=== PATIENT | female | born 1945 | race Caucasian/White ===

== ENCOUNTER 2019-02-25 12:26 | Inpatient (IN) ==
[2019-02-25] MEDS ORDERED: SODIUM CHLORIDE 0.9% 500 ML IV SCH (12:45)
[2019-02-25 12:55] LABS: Basophils # (auto) 0.03 K/uL (0-0.2); Basophils % (auto) 0.5 %; Eosinophils # (auto) 0.12 K/uL (0-0.5); Eosinophils % (auto) 1.8 %; Hematocrit (blood only) 38.8 % (37-47); Hemoglobin 12.9 g/dL (12.0-16.0); Immature Granulocytes # (auto) 0.02 K/uL (0.00-0.02); Immature Granulocytes % (auto) 0.3 %; Lymphocytes # (auto) 1.79 K/uL (1.2-3.4); Lymphocytes % (auto) 27.3 %; Mean Corpuscular Hgb Conc 33.2 g/dL (32-36); Mean Corpuscular Volume 91.1 fL (80-100); Mean Platelet Volume 9.7 fL (7.4-10.4); Monocytes % (auto) 10.7 %; Neutrophils % (auto) 59.4 %; Platelet Count 224 K/uL (130-400); RDW Coefficient of Variation 14.4 % (11.5-14.5); RDW Standard Deviation 48.2 fL (36.4-46.3); Red Blood Count 4.26 M/uL (4.2-5.4); White Blood Count 6.56 K/uL (4.8-10.8)
[2019-02-25 13:03] LABS: Alanine Aminotransferase 17 U/L (12-78); Albumin Level 2.8 gm/dl (3.4-5.0); Aspartate Aminotransferase 16 U/L (15-37); BUN Creatinine Ratio 20.9 (10-20); Blood Urea Nitrogen 18 mg/dl (7-18); Calcium 9.1 mg/dl (8.5-10.1); Carbon Dioxide 29 mmol/L (21-32); Chloride 111 mmol/L (98-107); Est GFR (African American) 74.5; Est GFR (Non-African American) 64.3; Glucose 111 mg/dl (70-99); Magnesium 2.1 mg/dl (1.8-2.4); Potassium 4.3 mmol/L (3.5-5.1); Sodium 144 mmol/L (136-145)
[2019-02-25 13:07] LABS: Partial Thromboplastin Ratio 0.8; Partial Thromboplastin Time 21.1 Seconds (21.0-31.0); Prothrombin Time 10.1 Seconds (9.0-12.0)
[2019-02-25 13:13] LABS: Albumin Globulin Ratio 0.7 (0.9-2); Alkaline Phosphatase 129 U/L (45-117); Bilirubin,Total 0.3 mg/dl (0.2-1); Total Protein 6.8 gm/dl (6.4-8.2); Troponin I < 0.015 ng/ml (0-0.045)
--- NOTE | 2019-02-25 13:26 | XRay Report ---
KUB HISTORY: Ureteral stent evaluation. COMPARISON: None. FINDINGS: The bowel gas pattern is unremarkable. There are no dilated loops of small bowel to suggest an obstruction. A right ureteral stent appears in good position. No definite renal or ureteral calc elias identified. 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 There is also moderate to se andreas osteoarthritis within the right hip. Round calcification within the left deep pelvis favors a ph lebolith. The renal shadows are mostly obscured by overlying bowel gas. No pneumoperitoneum or pneuma tosis. IMPRESSION: The right ureteral stent appears in good position. No definite renal or ureteral calculi identified. Electronically signed by: Lusi Chaney M.D. 02/25/2019 1:25 PM
--- NOTE | 2019-02-25 13:26 | XRay Report ---
XR chest 1V portable CLINICAL HISTORY: weakness dyspnea COMPARISON STUDY: No previous studies for comparison. FINDINGS: Heart is top normal in terms of size. Slight nonspecific interstitial prominence. No focal infiltrate. Diaphragms are smooth. IMPRESSION: Slight nonspecific interstitial prominence. Otherwise negative chest. The above report was generated using voice recognition software. It may contain grammatical, syntax or spelling errors. Electronically signed by: Papito Moses M.D. 02/25/2019 1:25 PM
[2019-02-25 13:38] LABS: Appearance Urine Cloudy (Clear); Bacteria Urine Automated Negative (Negative); Bilirubin Urine Negative (Negative); Color Urine Yellow; Epithelial Cell Urine Auto >30 /lpf (0-5); Glucose Urine UA Negative (Negative); Ketones Urine Negative (Negative); Leukocyte Esterase Urine 3+ (Negative); Nitrite Urine Negative (Negative); Protein Urine Negative (Negative); Specific Gravity Urine 1.017 (1.000-1.030); Urobilinogen Urine Negative (Negative); WBC Urine Automated >30 /hpf (0-5); pH Urine 7.5 (4.5-7.5)
[2019-02-25] MEDS ORDERED: PIPERACILLIN/TAZOBACTAM 4.5 GM/120 ML BAG IV ONE (14:20)
[2019-02-25] MEDS ORDERED: PIPERACILL/TAZOBAC CONSULT ACTIVE PRN (14:20)
--- NOTE | 2019-02-25 14:39 | Emergency Department Note ---
Entered by Trina Boudreaux acting as a scribe for History of Present Illness General Chief complaint: Altered Mental Status Stated complaint: altered mental status Time Seen by Provider: 02/25/19 12:28 Source: family (sister) Mode of arrival: EMS Limitations: no limitations History of Present Illness Provider complaint: AMS Onset (ago): hour(s) (this morning) Location: head Pain Consistency: + other (episode) Quality: + other (AMS) Associated symptoms: + confusion, + fever/chills and + other (lethargic) The patient is a 73 year old female who presents to the Emergency Room via EMS for an evaluation of altered mental status. The patient's sister at bedside reports that the patient was referred to the ER after being evaluated at the sleep clinic. She states that the provider thought the patient seemed confused and lethargic. She agrees with the patient being lethargic but disagrees with the confusion. She explains that she believes that the patient is acting baseline. She also reports that the patient does have a kidney infection and had a ureteral stent placed recently. Per sister, the patient temperature earlier today was 99 F. Home Medications Home Medications Medication Instructions Recorded Confirmed Type acetaminophen 500 mg PO Q6H PRN 02/25/19 02/25/19 History aspirin 81 mg PO DAILY 02/25/19 02/25/19 History atenolol 12.5 mg PO DAILY 02/25/19 02/25/19 History divalproex 250 mg PO TID 02/25/19 02/25/19 History divalproex [Depakote] 125 mg PO DAILY 02/25/19 02/25/19 History donepezil 10 mg PO DAILY 02/25/19 02/25/19 History gabapentin [Neurontin] 100 mg PO TID 02/25/19 02/25/19 History Allergies Allergy/AdvReac Type Severity Reaction Status Date / Time sulfamethoxazole AdvReac Photosensit Unverified 02/25/19 14:09 [From Bactrim] ivity trimethoprim [From Bactrim] AdvReac Photosensit Unverified 02/25/19 14:09 ivity Past Med/Surg History Medical History Kidney infection Surgical History S/P ureteral stent placement Social History Feels Safe at Home: Yes Smoking Status: Never smoker Review of Systems See HPI for pertinent positives & negatives. and A total of 10 systems reviewed and were otherwise negative Physical Exam Vital Signs Vital Signs - 24 hr 02/25/19 12:37 02/25/19 12:42 02/25/19 12:57 Temperature 37.0 C Temperature Source Oral Sepsis Recent Fever Within 48 Hours No Sepsis Action Taken by Nursing No Action Required Pulse Rate 56 L 54 L 56 L Respiratory Rate 20 17 20 Blood Pressure 155/67 H 155/67 H Blood Pressure Mean 96 96 Pulse Oximetry 97 Oxygen Delivery Method Room Air 02/25/19 13:00 02/25/19 13:22 Temperature Temperature Source Sepsis Recent Fever Within 48 Hours Sepsis Action Taken by Nursing Pulse Rate 70 62 Respiratory Rate 25 H Blood Pressure Blood Pressure Mean Pulse Oximetry 98 Oxygen Delivery Method Room Air GENERAL: Patient is awake to verbal commands. She is slow to answer questions but does answer questions appropriately at times. She recognizes her sister. EYES: The conjunctivae are clear. The pupils are round and reactive. EARS, NOSE, MOUTH AND THROAT: The nose is without any evidence of any deformity. Mucous membranes are moist.Tongue is midline NECK: The neck is nontender and supple. RESPIRATORY: Normal respiratory effort is noted. There is no evidence of wheezing rhonchi or rales to auscultation. CARDIOVASCULAR: Regular rate and rhythm noted. There no murmurs rubs or gallops normal S1 normal S2 GASTROINTESTINAL: The abdomen is soft. Bowel sounds are present in all quadrants. Abdomen is nontender. MUSCULOSKELETAL/EXTREMITIES: There is no evidence of gross deformity. Full range of motion is noted in the hips and shoulders. SKIN: There is no obvious evidence of any rash. Pedal edema was noted bilaterally. NEUROLOGIC: Patient is awake to verbal commands. She is moving all extremities well. Strength is symmetric but diminished. There is no facial droop noted. Course 1243: Past medical records reviewed. The patient was evaluated in room B7. A complete history and physical examination was performed. 1444: I reviewed the patient's case with Rhea Joshi PA-C - [facility] Hospitalist. She will evaluate the patient for further management. Administered Medications Discontinued Medications Sodium Chloride (Nss) 500 mls @ 999 mls/hr IV .Q31M RIN Stop: 02/25/19 13:15 Last Infusion: 02/25/19 13:52 Dose: 0 mls/hr Documented by: [id number] Admin: 02/25/19 13:05 Dose: 999 mls/hr Documented by: [id number] Medical Decision Making Differential Diagnosis Differential diagnoses includes but is not limited to toxic, metabolic, infectious, traumatic, cardiac, neurologic, hematologic, psychiatric and inflammatory etiologies. Medical Records Attestation: I reviewed the patient's medical records. Home Medications Current Medication List: was personally reviewed by in Laboratory Data Attestation: I reviewed the patient's lab results. Result diagrams: 02/25/19 12:12 02/25/19 12:12 Lab Results 02/25/19 02/25/19 02/25/19 Range/Units 12:12 12:12 12:12 WBC 6.56 (4.8-10.8) K/uL RBC 4.26 (4.2-5.4) M/uL Hgb 12.9 (12.0-16.0) g/dL Hct 38.8 (37-47) % MCV 91.1 (80-100) fL MCH 30.3 (25-34) pg MCHC 33.2 (32-36) g/dL RDW Std Deviation 48.2 H (36.4-46.3) fL RDW Coeff of Cathie 14.4 (11.5-14.5) % Plt Count 224 (130-400) K/uL MPV 9.7 (7.4-10.4) fL Immature Gran % (Auto) 0.3 % Neut % (Auto) 59.4 % Lymph % (Auto) 27.3 % [place] % (Auto) 10.7 % Eos % (Auto) 1.8 % Baso % (Auto) 0.5 % Immature Gran # (Auto) 0.02 (0.00-0.02) K/uL Neut # (Auto) 3.90 (1.4-6.5) K/uL Lymph # (Auto) 1.79 (1.2-3.4) K/uL [place] # (Auto) 0.70 H (0.11-0.59) K/uL Eos # (Auto) 0.12 (0-0.5) K/uL Baso # (Auto) 0.03 (0-0.2) K/uL PT 10.1 (9.0-12.0) Seconds INR 1.0 (0.9-1.1) APTT 21.1 (21.0-31.0) Seconds PTT Ratio 0.8 Sodium 144 (136-145) mmol/L Potassium 4.3 (3.5-5.1) mmol/L Chloride 111 H (98-107) mmol/L Carbon Dioxide 29 (21-32) mmol/L Anion Gap 4.0 (3-11) BUN 18 (7-18) mg/dl Creatinine 0.88 (0.6-1.2) mg/dl Est Cr Clr Drug Dosing 51.0 ml/min Est GFR ( Amer) 74.5 Est GFR (Non-Af Amer) 64.3 BUN/Creatinine Ratio 20.9 H (10-20) Glucose 111 H (70-99) mg/dl Lactate (0.4-2.0) mmol/L Calcium 9.1 (8.5-10.1) mg/dl Magnesium 2.1 (1.8-2.4) mg/dl Total Bilirubin 0.3 (0.2-1) mg/dl AST 16 (15-37) U/L ALT 17 (12-78) U/L Alkaline Phosphatase 129 H (45-117) U/L Troponin I < 0.015 (0-0.045) ng/ml Total Protein 6.8 (6.4-8.2) gm/dl Albumin 2.8 L (3.4-5.0) gm/dl Globulin 4.0 (2.5-4.0) gm/dl Albumin/Globulin Ratio 0.7 L (0.9-2) TSH 3.370 (0.300-4.500) uIu/ml Urine Color Urine Appearance (Clear) Urine pH (4.5-7.5) Ur Specific [place] (1.000-1.030) Urine Protein (Negative) Urine Glucose (UA) (Negative) Urine Ketones (Negative) Urine Blood (Negative) Urine Nitrite (Negative) Urine Bilirubin (Negative) Urine Urobilinogen (Negative) Ur Leukocyte Esterase (Negative) Urine WBC (Auto) (0-5) /hpf Urine RBC (Auto) (0-4) /hpf U Hyaline Cast (Auto) (0-5) /lpf U Epithel Cells (Auto) (0-5) /lpf Urine Bacteria (Auto) (Negative) 02/25/19 02/25/19 Range/Units 13:00 14:22 WBC (4.8-10.8) K/uL RBC (4.2-5.4) M/uL Hgb (12.0-16.0) g/dL Hct (37-47) % MCV (80-100) fL MCH (25-34) pg MCHC (32-36) g/dL RDW Std Deviation (36.4-46.3) fL RDW Coeff of Cathie (11.5-14.5) % Plt Count (130-400) K/uL MPV (7.4-10.4) fL Immature Gran % (Auto) % Neut % (Auto) % Lymph % (Auto) % [place] % (Auto) % Eos % (Auto) % Baso % (Auto) % Immature Gran # (Auto) (0.00-0.02) K/uL Neut # (Auto) (1.4-6.5) K/uL Lymph # (Auto) (1.2-3.4) K/uL [place] # (Auto) (0.11-0.59) K/uL Eos # (Auto) (0-0.5) K/uL Baso # (Auto) (0-0.2) K/uL PT (9.0-12.0) Seconds INR (0.9-1.1) APTT (21.0-31.0) Seconds PTT Ratio Sodium (136-145) mmol/L Potassium (3.5-5.1) mmol/L Chloride (98-107) mmol/L Carbon Dioxide (21-32) mmol/L Anion Gap (3-11) BUN (7-18) mg/dl Creatinine (0.6-1.2) mg/dl Est Cr Clr Drug Dosing ml/min Est GFR ( Amer) Est GFR (Non-Af Amer) BUN/Creatinine Ratio (10-20) Glucose (70-99) mg/dl Lactate 3.5 H* (0.4-2.0) mmol/L Calcium (8.5-10.1) mg/dl Magnesium (1.8-2.4) mg/dl Total Bilirubin (0.2-1) mg/dl AST (15-37) U/L ALT (12-78) U/L Alkaline Phosphatase (45-117) U/L Troponin I (0-0.045) ng/ml Total Protein (6.4-8.2) gm/dl Albumin (3.4-5.0) gm/dl Globulin (2.5-4.0) gm/dl Albumin/Globulin Ratio (0.9-2) TSH (0.300-4.500) uIu/ml Urine Color Yellow Urine Appearance Cloudy A (Clear) Urine pH 7.5 (4.5-7.5) Ur Specific [place] 1.017 (1.000-1.030) Urine Protein Negative (Negative) Urine Glucose (UA) Negative (Negative) Urine Ketones Negative (Negative) Urine Blood Negative (Negative) Urine Nitrite Negative (Negative) Urine Bilirubin Negative (Negative) Urine Urobilinogen Negative (Negative) Ur Leukocyte Esterase 3+ H (Negative) Urine WBC (Auto) >30 H (0-5) /hpf Urine RBC (Auto) 10-30 H (0-4) /hpf U Hyaline Cast (Auto) 1-5 (0-5) /lpf U Epithel Cells (Auto) >30 H (0-5) /lpf Urine Bacteria (Auto) Negative (Negative) Imaging Data Radiologist's Impression: Radiology results as stated below per my review and the radiologist's interpretation: XR chest 1V portable CLINICAL HISTORY: weakness dyspnea COMPARISON STUDY: No previous studies for comparison. FINDINGS: Heart is top normal in terms of size. Slight nonspecific interstitial prominence. No focal infiltrate. Diaphragms are smooth. IMPRESSION: Slight nonspecific interstitial prominence. Otherwise negative chest. The above report was generated using voice recognition software. It may contain grammatical, syntax or spelling errors. Electronically signed by: Papito Moses M.D. 02/25/2019 1:25 PM KUB HISTORY: Ureteral stent evaluation. COMPARISON: None. FINDINGS: The bowel gas pattern is unremarkable. There are no dilated loops of small bowel to suggest an obstruction. A right ureteral stent appears in good position. No definite renal or ureteral calculi identified. 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 There is also moderate to severe osteoarthritis within the right hip. Round calcification within the left deep p jose favors a phlebolith. The renal shadows are mostly obscured by overlying bowel gas. No pneumoperitoneum or pneumatosis. IMPRESSION: The right ureteral stent appears in good position. No definite renal or ureteral calculi identified. Electronically signed by: Luis Chaney M.D. 02/25/2019 1:[address] head/brain wo con CLINICAL HISTORY: Altered mental status. Weakness. COMPARISON STUDY: No previous studies for comparison. TECHNIQUE: Axial CT of the brain is performed from the vertex to the skull base. IV contrast was not administered for this examination. A dose lowering technique was utilized adhering to the principles of ALARA. CT DOSE: 537.48 mGy.cm FINDINGS: No intra or extra-axial mass lesions are visualized. There is no CT evidence of acute cortical infarction. There is no evidence of midline shift. There is no ac [place] hemorrhage. No calvarial fractures are visualized. There are patchy white matter hypodensities likely on a small vessel basis. There is mild ventricular dilatation, finding which is felt to be secondary to volume loss. There is fluid/mucosal thickening within the left maxillary sinus. IMPRESSION: 1. No acute intracranial findings 2. Inflammatory changes within the left maxillary sinus Electronically signed by: Reggie Christiansen M.D. 02/25/2019 3:07 PM ECG Data Attestation: I personally reviewed and interpreted this ECG as follows: Indication: altered mental status Rate (beats per minute): 55 Rhythm: normal sinus Findings: + T-wave inversion (Anterolateral); no ectopy Comparison ECG Date: no prior available Blood Pressure Blood Pressure Findings: Elevated blood pressure Blood Pressure Disposition: further management by hospitalist [facility] Narrative The patient is a 73-year-old female who presented to the emergency department for an evaluation of altered mental status. The patient presented to the emergency department with her sister who states that she has had decreased mentation and is not following commands correctly. She has no unilateral symptoms. She recently had a stent changed which is chronically in place to ensure her renal function but was changed recently by urology. The patient had low-grade fevers reportedly. She is awake and alert on my physical exam but has a urinalysis which I feel is consistent with a urinary tract infection. She was treated with IV fluids as well as IV antibiotics in the emergency department. I discussed the patient's laboratory and radiographic studies with her and her sister. I also discussed her case with the on-call [facility] hospitalist group. They have agreed to evaluate patient in the emergency department for further management and disposition. After the rn case management further evaluated the patient's case they felt that she should be signed out to the [facility] admission team. I discussed her case with the on-call [facility] hospitalist group. They have agreed to evaluate the patient in the emergency department for further management and disposition. Impression & Plan Altered mental status, S/P ureteral stent placement, UTI (urinary tract infection) Discharge Plan Visit Data Chief Complaint: Altered Mental Status Stated Complaint: altered mental status ED Provider: Augie Aldridge Discharge Problem: Altered mental status, S/P ureteral stent placement, UTI (urinary tract infection) Patient Disposition: Being Evaluated by Hospitalist Forms Stand Alone Forms: My [facility] Prescriptions Prescriptions: No Action donepezil 5 mg tablet 10 mg PO DAILY RF: 0 divalproex 250 mg tablet,delayed release (DR/EC) 250 mg PO TID RF: 0 atenolol 25 mg tablet 12.5 mg PO DAILY RF: 0 aspirin 81 mg Tablet,Delayed Release (Dr/Ec) 81 mg PO DAILY RF: 0 acetaminophen 500 mg Tablet 500 mg PO Q6H PRN (Reason: Pain) RF: 0 divalproex [Depakote] 125 mg Tablet,Delayed Release (Dr/Ec) 125 mg PO DAILY RF: 0 gabapentin [Neurontin] 100 mg Capsule 100 mg PO TID RF: 0 Referrals Referrals: PCP,NO [Primary Care Provider] - Discharge Problem: Altered mental status Qualifiers: Altered mental status type: unspecified Qualified Code(s): R41.82 - Altered mental status, unspecified UTI (urinary tract infection) Qualifiers: Urinary tract infection type: site unspecified Hematuria presence: without hematuria Qualified Code(s): N39.0 - Urinary tract infection, site not specified The scribe's documentation has been prepared under my direction and personally reviewed by me in its entirety. I confirm that the note above accurately reflects all work, treatment, procedures, and medical decision making performed by me.
--- NOTE | 2019-02-25 15:08 | CT Scan Report ---
CT head/brain wo con CLINICAL HISTORY: Altered mental status. Weakness. COMPARISON STUDY: No previous studies for comparison. TECHNIQUE: Axial CT of the brain is performed from the vertex to the skull base. IV contrast was not administered for this examination. A dose lowering technique was utilized adhering to the principles of ALARA. CT DOSE: 537.48 mGy.cm FINDINGS: No intra or extra-axial mass lesions are visualized. There is no CT evidence of acute cortical infarc tion. There is no evidence of midline shift. There is no acute hemorrhage. No calvarial fractures ar e visualized. There are patchy white matter hypodensities likely on a small vessel basis. There is mild ventricular dilatation, finding which is felt to be secondary to volume loss. There is fluid/mucosal thickening within the left maxillary sinus. IMPRESSION: 1. No acute intracranial findings 2. Inflammatory changes within the left maxillary sinus Electronically signed by: Reggie Christiansen M.D. 02/25/2019 3:07 PM
--- NOTE | 2019-02-25 16:39 | History & Physical Report ---
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 In ED patient CBC was relatively unremarkable, CMP reveals slightly elevated glucose 111, alk phos 129, troponin and TSH WNL, lactic acid 3.5 Urine reveals positive leukocyte esterase, WBC but negative bacteria Chest x-ray no acute cardiopulmonary abnormality CT scan of brain 1. No acute intracranial findings 2. Inflammatory changes within the left maxillary sinus Patient recommended for admission due to increased confusion/hypersomnolence - pt is fully awake and alert on my exam but pleasantly demented There is concern for possible UTI --> last UTI tx 02/13 + enterococcus > 100k Urine is showing no bacturiabut +leuks will wait for culture WBC WNL and pt is afebrile so I feel like infection is less likely; however her lactic acid is elevated at 3.5 Her EKG reveals sinus bradycardia and anterolateral t wave inversions - No ecg to compare to : Pt asymptomatic and troponin WNL admit under observation to med/surg tele continue IV rocephin for now until urine and blood culture prelims return IVF 80cc/hr x 2 L trend lactic acid along with troponin check CK and procalcitonin consult psych ? if hypersomnolence/worsened confusion is secondary to polypharmacy (4) T wave inversion in EKG: Unknown baseline EKG EKG reveals T wave inversions anterolateral, troponin is negative and she is not complaining of chest pain but history is unreliable Will trend troponin Q6h and repeat ECG if any abnormality or change will obtain echocardiogram (5) Elevated lactic acid level: uncertain significance pt wbc is WNL and afebrile Urine culture and blood culture pending Cover with IV rocephin for now IVF and repeat lactate (6) Hydronephrosis due to obstruction of ureter: History of chronic right hydronephrosis 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 Stent last exchanged by Dr. Sharma at [facility] 01/24/2019. Exchanged on a yearly basis. KUB shows good position of stent (7) Schizophrenia: Mood stable ? If hypersomnolence related to multiple psychiatric medications including Depakote, Zyprexa, Zoloft, Risperdal Continue medications for now Consult psych for overview of medications (8) HTN (hypertension): Blood pressure slightly elevated, will monitor Continue atenolol (9) COPD (chronic obstructive pulmonary disease): No acute exacerbation Continue Symbicort (10) T2DM (type 2 diabetes mellitus): unknown a1c, obtain a1c in a.m. off diabetic meds will check accuchecks if bsg consistently elevated will add novolog sliding scale (11) CELIO treated with BiPAP: continue Bipap at HS (12) DVT prophylaxis: lovenox, SCDs Disposition: return to [facility] upon discharge Follow up: PCP Dr. Fernandez upon discharge Patient was seen and examined in collaboration with Dr. Paez, please see addendum History of Present Illness Chief Complaint: Increased confusion x 1 day. Primary Care Provider: Dr. 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 Patient was seen at [facility] sleep medicine clinic today with sister at bedside. Provider was unable to arouse patient due to hypersomnolence. Reason for visit was hypersomnolence. There was concern about altered mental status and it was recommended she seek for further evaluation. Sister continues to be at bedside. Unable to obtain history or ROS from patient given dementia. Patient resides at [facility]. Sister notes temp 99F sleep medicine clinic. She does feel she is more confused than usual. She is unable to describe patient's baseline mental status. History obtained from outpatient provider records. Allergies Allergy/AdvReac Type Severity Reaction Status Date / Time sulfamethoxazole AdvReac Photosensit Unverified 02/25/19 14:09 [From Bactrim] ivity trimethoprim [From Bactrim] AdvReac Photosensit Unverified 02/25/19 14:09 ivity Home Medications Home Medications Medication Instructions Recorded Confirmed Type Saccharomyces boulardii [Florastor] 250 mg PO BID 02/25/19 02/25/19 History acetaminophen 500 mg PO Q6H PRN 02/25/19 02/25/19 History albuterol sulfate 0.63 mg INHALATION QID PRN 02/25/19 02/25/19 History aspirin 81 mg PO DAILY 02/25/19 02/25/19 History atenolol 12.5 mg PO DAILY 02/25/19 02/25/19 History budesonide-formoterol [Symbicort] 2 puff INHALATION Q12H 02/25/19 02/25/19 History cholecalciferol (vitamin D3) 2,000 unit PO DAILY 02/25/19 02/25/19 History divalproex 250 mg PO TID 02/25/19 02/25/19 History donepezil 10 mg PO DAILY 02/25/19 02/25/19 History iron-vit C-vit [id number] acid 2 tab PO DAILY 02/25/19 02/25/19 History [Iron 100 Plus] multivitamin 1 cap PO QAM 02/25/19 02/25/19 History olanzapine 10 mg PO BID 02/25/19 02/25/19 History risperidone [Risperdal] 0.5 mg PO TID 02/25/19 02/25/19 History sertraline 25 mg PO DAILY 02/25/19 02/25/19 History Past Med/Surg History Medical History History of hysterectomy (Chronic) Hydronephrosis due to obstruction of ureter (Chronic) HTN (hypertension) (Chronic) T2DM (type 2 diabetes mellitus) (Chronic) COPD (chronic obstructive pulmonary disease) (Chronic) HLD (hyperlipidemia) (Chronic) PEDRITO (generalized anxiety disorder) (Chronic) Schizophrenia (Chronic) Dementia (Chronic) CELIO treated with BiPAP (Chronic) Kidney infection Surgical History H/O cystoscopy (Chronic) S/P cystoscopy with ureteral stent placement (Chronic) History of chronic right hydronephrosis 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 Stent last exchanged by Dr. Sharma at [facility] 01/24/2019. Exchanged on a yearly basis. Hx of nephrostomy (Chronic) S/P ureteral stent placement (Acute) Family History Mother Alzheimer disease Pneumonia Father Coronary heart disease, Onset Age: 55 [place] Social History Preferred Language: German Communication Ability: confused Communication Ability Comment: Dementia Repair Miller Required: No Beliefs That Will Affect Care: None marital status: / Current Living Situation: Longterm Other Information That Helps Us Care for You: No Feels Safe at Home: Yes Smoking Status: Former smoker Smoking End Date: 2005 Hx Alcohol Use: No Hx Substance Use: No Review of Systems Review of Systems: Unobtainable due to cognitive status Physical Exam Physical Exam: Gen: Elderly, female, appears older than stated age, lying in bed, pleasantly confused Head: Normocephalic, Atraumatic Eyes: Sclera normal, no conjunctival injection, PERRLA, EOMI ENT: Gross hearing intact, normal pharynx, mucous membranes moist Neck: supple, no adenopathy, No JVD, no bruit, Resp: Clear to auscultation b/l, no wheeze, rales, rhonchi. 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0 C 56 L 20 155/67 H 97 Laboratory Results Short CBC 02/25/19 02/25/19 Range/Units 12:12 12:12 WBC 6.56 (4.8-10.8) K/uL Hgb 12.9 (12.0-16.0) g/dL Hct 38.8 (37-47) % Plt Count 224 (130-400) K/uL Est GFR (Non-Af Amer) 64.3 BMP 02/25/19 12:12 Sodium 144 Potassium 4.3 Chloride 111 H Carbon Dioxide 29 BUN 18 Creatinine 0.88 Glucose 111 H Calcium 9.1 Cardiac Enzymes 02/25/19 Range/Units 12:12 Troponin I < 0.015 (0-0.045) ng/ml Liver Function 02/25/19 Range/Units 12:12 Total Bilirubin 0.3 (0.2-1) mg/dl AST 16 (15-37) U/L ALT 17 (12-78) U/L Alkaline Phosphatase 129 H (45-117) U/L Albumin 2.8 L (3.4-5.0) gm/dl Urine 02/25/19 Range/Units 13:00 Urine Color Yellow Urine Appearance Cloudy A (Clear) Urine pH 7.5 (4.5-7.5) Ur Specific [place] 1.017 (1.000-1.030) Urine Protein Negative (Negative) Urine Glucose (UA) Negative (Negative) Diagnostic Findings CT Head: IMPRESSION: 1. No acute intracranial findings 2. Inflammatory changes within the left maxillary sinus KUB xray: IMPRESSION: The right ureteral stent appears in good position. No definite renal or ureteral calculi identified. CXR: IMPRESSION: Slight nonspecific interstitial prominence. Otherwise negative chest. Medications Administered Sodium Chloride (Nss 1000ml) 1,000 mls @ 80 mls/hr IV .[id number] [facility] Stop: 02/26/19 17:29 Last Admin: 02/25/19 16:44 Dose: 80 mls/hr Documented by: [id number] Discontinued Medications Sodium Chloride (Nss) 500 mls @ 999 mls/hr IV .Q31M RIN Stop: 02/25/19 13:15 Last Infusion: 02/25/19 13:52 Dose: 0 mls/hr Documented by: [id number] Admin: 02/25/19 13:05 Dose: 999 mls/hr Documented by: [id number] Piperacillin Sod/Tazobactam Sod (Zosyn) 4.5 gm in 120 mls @ 240 mls/hr IV NOW ONE Stop: 02/25/19 14:49 Last Admin: 02/25/19 16:44 Dose: 240 mls/hr Documented by: [id number] ECG Rhythm: sinus bradycardia Findings: + T-wave inversion (anterolateral) Code Status & VTE Plan Code Status Full Code VTE Prophylaxis Plan VTE Prophylaxis will be ordered: Yes Supervising Physician Co-Signing Physician Notes Pt was seen and examined. Agreed with [facility] exam, assessment and plan. 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 currently pt is awake and follow commands. Sister said that pt has been very sleepy in the last few weeks. CT head done showed no acute intracranial findings. No focal deficit on admission. Elevated lactic acid on admission. Received IV Zosyn for now. Blood culture collected in the ER pending. Will hold on additional abx for now. Will repeat lactic acid. Monitor closely. MD Jeannine (1) UTI (urinary tract infection) Hematuria presence: without hematuria Urinary tract infection type: site unspecified Qualified Code(s): N39.0 - Urinary tract infection, site not specified (2) Altered mental status Altered mental status type: unspecified Qualified Code(s): R41.82 - Altered mental status, unspecified
[2019-02-25] MEDS: SODIUM CHLORIDE 0.9% 1000ML 1,000 ML IV SCH (16:44)
[2019-02-25] MEDS ORDERED: ONDANSETRON INJ 2 MG/ML 2 ML VIAL IV PRN (18:00)
[2019-02-25] MEDS ORDERED: DEXTROSE 50% 50 ML SYRINGE IV PRN (18:00)
[2019-02-25] MEDS ORDERED: GLUCOSE 40% GEL 15 GM TUBE PO PRN (18:00)
[2019-02-25] MEDS ORDERED: CARBOHYDRATES FOR HYPOGLYCEMIA PO PRN (18:00)
[2019-02-25] MEDS ORDERED: ALUMINUM/MAGNESIUM SUSP 30 ML UDC PO PRN (18:00)
[2019-02-25] MEDS ORDERED: MAGNESIUM HYDROXIDE SUSP 30 ML UDC PO PRN (18:00)
[2019-02-25] MEDS ORDERED: GLUCOSE 10 TABS/TUBE PO PRN (18:00)
[2019-02-25] MEDS ORDERED: GLUCAGON FOR INJ 1 MG VIAL SQ PRN (18:00)
[2019-02-25] MEDS ORDERED: ACETAMINOPHEN 325 MG TAB PO PRN (18:00)
[2019-02-25] MEDS ORDERED: POLYETHYLENE (MIRALAX) 17 GM PACK PO PRN (18:00)
[2019-02-25] MEDS: cefTRIAXone SODIUM 1,000 MG in DEXTROSE 5% 50 ML IV SCH (19:21)
[2019-02-25] MEDS: BUDESONIDE/FORMOTEROL FUMARATE 160/4.5 60 PUFFS/INHALER INH SCH (20:32)
[2019-02-25] MEDS: DIVALPROEX DELAY RELEASE 250 MG TABEC PO SCH (20:32)
[2019-02-25] MEDS: SACCHAROMYCES BOULARDII 250 MG CAP PO SCH (20:32)
[2019-02-25] MEDS: OLANZapine 10 MG TAB PO SCH (20:32)
[2019-02-25] MEDS: risperiDONE 0.5 MG TABLET PO SCH (20:32)
[2019-02-26] MEDS: SODIUM CHLORIDE 0.9% 1000ML 1,000 ML IV SCH (05:22)
[2019-02-26] MEDS: BUDESONIDE/FORMOTEROL FUMARATE 160/4.5 60 PUFFS/INHALER INH SCH ×2 (05:23→18:31)
[2019-02-26 07:46] LABS: Basophils # (auto) 0.02 K/uL (0-0.2); Basophils % (auto) 0.4 %; Eosinophils # (auto) 0.17 K/uL (0-0.5); Eosinophils % (auto) 3.2 %; Hematocrit (blood only) 38.4 % (37-47); Hemoglobin 12.3 g/dL (12.0-16.0); Immature Granulocytes # (auto) 0.02 K/uL (0.00-0.02); Immature Granulocytes % (auto) 0.4 %; Lymphocytes # (auto) 1.64 K/uL (1.2-3.4); Lymphocytes % (auto) 30.8 %; Mean Corpuscular Volume 91.9 fL (80-100); Mean Platelet Volume 9.4 fL (7.4-10.4); Monocytes # (auto) 0.55 K/uL (0.11-0.59); Monocytes % (auto) 10.3 %; Neutrophils # (auto) 2.93 K/uL (1.4-6.5); Neutrophils % (auto) 54.9 %; Platelet Count 181 K/uL (130-400); RDW Coefficient of Variation 14.5 % (11.5-14.5); RDW Standard Deviation 48.4 fL (36.4-46.3); Red Blood Count 4.18 M/uL (4.2-5.4); White Blood Count 5.33 K/uL (4.8-10.8)
[2019-02-26] MEDS: SACCHAROMYCES BOULARDII 250 MG CAP PO SCH ×2 (08:03→20:30)
[2019-02-26] MEDS: DONEPEZIL HCL 10 MG TAB PO SCH (08:03)
[2019-02-26] MEDS: risperiDONE 0.5 MG TABLET PO SCH ×3 (08:03→20:30)
[2019-02-26] MEDS: MULTIVITAMIN TAB PO SCH (08:03)
[2019-02-26] MEDS: SERTRALINE HCL 50 MG TABLET PO SCH (08:04)
[2019-02-26] MEDS: CHOLECALCIFEROL 1,000 UNITS TAB PO SCH (08:04)
[2019-02-26] MEDS: DIVALPROEX DELAY RELEASE 250 MG TABEC PO SCH ×3 (08:04→20:30)
[2019-02-26] MEDS: OLANZapine 10 MG TAB PO SCH ×2 (08:04→20:30)
[2019-02-26] MEDS: ENOXAPARIN INJ 40 MG/0.4 ML SYR SQ SCH (08:04)
[2019-02-26] MEDS: ASPIRIN 81 MG ECTAB PO SCH (08:04)
[2019-02-26 08:20] LABS: BUN Creatinine Ratio 19.6 (10-20); Creatinine Clr Calc Pharmacy 48.1 ml/min; Est GFR (African American) 72.5; Est GFR (Non-African American) 62.5; Potassium 4.1 mmol/L (3.5-5.1)
[2019-02-26] MEDS ORDERED: ATENOLOL 25 MG TABLET PO SCH (09:00)
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
--- NOTE | 2019-02-26 16:57 | Hospitalist Progress Note ---
Date of Service February 26, 2019 Assessment & Plan (1) Altered mental status: (2) Dementia: (3) UTI (urinary tract infection): Patient is a 73 yr female with H/O dementia, HTN, HLD, T2DM off medications, COPD, CELIO on BiPAP, schizophrenia, chronic right hydronephrosis with right renal atrophy due to right UPJ obstruction that is being managed with chronic right ureteral stent presents to [facility] ED secondary to increased confusion x1 day. Metabolic Encephalopathy-POA: likely due to Infection, insetting of dementia and on chronic Psychotropic meds CT Head:No acute intracranial findings. Inflammatory changes within the left maxillary sinus Urine Culture: pending Blood Culture:pending Chest x-ray no acute cardiopulmonary abnormality Continue IV Rocephin Continue IV Fluids Psychiatry Consulted for adjustment with medications Mental status better as per Patient's sister (4) T wave inversion in EKG: Unknown baseline EKG Troponin X 3: negative Patient denies chest pain Repeat EKG: unchanged (5) Elevated lactic acid level: Uncertain significance Normalized with IV fluids (6) Hydronephrosis due to obstruction of ureter: H/O Chronic right hydronephrosis with 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 Stent last exchanged by Dr. Sharma at [facility] [place]. Exchanged on a yearly basis. KUB: shows good position of stent (7) Schizophrenia: Mood stable Unclear if hypersomnolence related to multiple psychiatric medications Continue medications for now Consulted Psychiatry (8) HTN (hypertension): BP Variable Continue atenolol Monitor (9) COPD (chronic obstructive pulmonary disease): No acute exacerbation Continue Symbicort (10) T2DM (type 2 diabetes mellitus): Obtain A1C off diabetic meds Consider ISS if necessary (11) CELIO treated with BiPAP: continue Bipap at HS (12) DVT prophylaxis: Lovenox SQ Disposition: Return to [facility] once stable Subjective Patient is seen and examined at bedside History is limited secondary to dementia Mental status improved as per patient's sister Denies any chest pain, SOB, dizziness, dysuria, abdominal pain Cultures pending Afebrile Review of Systems Review of Systems: All systems reviewed & are unremarkable except as noted in HPI & below Physical Exam Physical Exam: Physical Exam: Vitals signs as noted above General Appearance:Moderately built and nourished, no apparent distress Head: normocephalic, Atraumatic Eyes: normal inspection, EOMI Neck: supple, Trachea midline Respiratory/Chest: Normal breath sounds, CTA Cardiovascular: S1, S2, No murmur Abdomen/GI:Soft, Non tender, Bowel sounds present Extremities/Musculoskelatal:normal inspection, no edema Neurologic/Psych:grossly no focal neurological deficits Skin: normal color, warm Results & Data Vital Signs (Past 12 Hours) Vital Signs Temp Pulse Resp BP Pulse Ox 02/26/19 15:31 37.1 C 52 L 18 129/60 91 02/26/19 11:22 36.6 C 50 L 16 140/57 L 93 02/26/19 07:18 36.5 C 78 20 172/89 H 93 Laboratory Results Short CBC 02/26/19 Range/Units 07:19 WBC 5.33 (4.8-10.8) K/uL Hgb 12.3 (12.0-16.0) g/dL Hct 38.4 (37-47) % Plt Count 181 (130-400) K/uL BMP 02/26/19 07:19 Sodium 145 Potassium 4.1 Chloride 112 H Carbon Dioxide 29 BUN 18 Creatinine 0.90 Glucose 106 H Calcium 9.0 Cardiac Enzymes 02/25/19 02/25/19 02/26/19 Range/Units 12:12 19:39 00:16 Total Creatine Kinase 32 (26-192) U/L Troponin I < 0.015 0.017 (0-0.045) ng/ml (1) Altered mental status Altered mental status type: unspecified Qualified Code(s): R41.82 - Altered mental status, unspecified (2) UTI (urinary tract infection) Hematuria presence: without hematuria Urinary tract infection type: site unspecified Qualified Code(s): N39.0 - Urinary tract infection, site not specified
[2019-02-26] MEDS: cefTRIAXone SODIUM 1,000 MG in DEXTROSE 5% 50 ML IV SCH (18:31)
[2019-02-26] MEDS ORDERED: MICONAZOLE NITRATE POWDER 43 GM EXT PRN (19:19)
[2019-02-27] MEDS: BUDESONIDE/FORMOTEROL FUMARATE 160/4.5 60 PUFFS/INHALER INH SCH ×2 (05:13→19:08)
[2019-02-27] MEDS: ATENOLOL 25 MG TABLET PO SCH (05:13)
--- NOTE | 2019-02-27 05:57 | Hospitalist Progress Note ---
Date of Service February 27, 2019 Subjective Made aware by RN of SBP 1 40-170s overnight. Episodic bradycardia during confinement. Patient's sister refusing Atenolol given episodic bradycardia. AP Hypertension, suboptimal control Episodic bradycardia Initiate low-dose RANDALL for BP control (Patient previously on lisinopril; held due to low BP late last year as per outpatient records) Hold beta-wally for now Will relay to AM provider. Results & Data Vital Signs (Past 12 Hours) Vital Signs Temp Pulse Pulse Resp BP Pulse Ox 02/27/19 04:00 36.5 C 62 20 168/68 H 96 02/26/19 23:00 36.5 C 59 L 17 178/85 H 97 02/26/19 22:30 79 18 95 02/26/19 19:00 36.5 C 62 20 146/71 H 93
[2019-02-27] MEDS: LISINOPRIL 2.5 MG TAB PO SCH (06:11)
[2019-02-27 06:32] LABS: Estimated Average Glucose 126 mg/dl
[2019-02-27] MEDS: DIVALPROEX DELAY RELEASE 250 MG TABEC PO SCH ×3 (08:55→20:21)
[2019-02-27] MEDS: MULTIVITAMIN TAB PO SCH (08:55)
[2019-02-27] MEDS: OLANZapine 10 MG TAB PO SCH ×2 (08:55→20:21)
[2019-02-27] MEDS: risperiDONE 0.5 MG TABLET PO SCH ×3 (08:55→20:21)
[2019-02-27] MEDS: DONEPEZIL HCL 10 MG TAB PO SCH (08:55)
[2019-02-27] MEDS: CHOLECALCIFEROL 1,000 UNITS TAB PO SCH (08:55)
[2019-02-27] MEDS: SERTRALINE HCL 50 MG TABLET PO SCH (08:56)
[2019-02-27] MEDS: ASPIRIN 81 MG ECTAB PO SCH (08:56)
[2019-02-27] MEDS: SACCHAROMYCES BOULARDII 250 MG CAP PO SCH ×2 (08:56→20:21)
[2019-02-27] MEDS: ENOXAPARIN INJ 40 MG/0.4 ML SYR SQ SCH (08:56)
--- NOTE | 2019-02-27 16:47 | Hospitalist Progress Note ---
Date of Service February 27, 2019 Assessment & Plan (1) Altered mental status: (2) Dementia: (3) UTI (urinary tract infection): Patient is a 73 yr female with H/O dementia, HTN, HLD, T2DM off medications, COPD, CELIO on BiPAP, schizophrenia, chronic right hydronephrosis with right renal atrophy due to right UPJ obstruction that is being managed with chronic right ureteral stent presents to [facility] ED secondary to increased confusion x1 day. H/O recurrent UTIs Metabolic Encephalopathy-POA: likely due to Infection, insetting of dementia and on chronic Psychotropic meds CT Head:No acute intracranial findings. Inflammatory changes within the left maxillary sinus Urine Culture: Strep Species Blood Culture:No growth to date Chest x-ray no acute cardiopulmonary abnormality Continue IV Rocephin Received IV Fluids Psychiatry Consulted for adjustment with medications Mental status continues to improve as per Patient's sister No new complaints (4) T wave inversion in EKG: Unknown baseline EKG Troponin X 3: negative Patient denies chest pain Repeat EKG: unchanged (5) Elevated lactic acid level: Uncertain significance Normalized with IV fluids (6) Hydronephrosis due to obstruction of ureter: H/O Chronic right hydronephrosis with 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 Stent last exchanged [place] Dr. Sharma [place] [facility] [place]. Exchanged on a yearly basis. KUB: shows good position of stent (7) Schizophrenia: Mood stable Unclear if hypersomnolence related to multiple psychiatric medications Continue medications for now Consulted Psychiatry (8) HTN (hypertension): BP Variable Continue atenolol Started on lisinopril for better BP control Monitor (9) COPD (chronic obstructive pulmonary disease): No acute exacerbation Continue Symbicort (10) T2DM (type 2 diabetes mellitus): Obtain A1C off diabetic meds Consider ISS if necessary (11) CELIO treated with BiPAP: continue Bipap at HS (12) DVT prophylaxis: Lovenox SQ Disposition: Return to [facility] once stable Subjective Patient is seen and examined at bedside History is limited secondary to dementia Reports dysuria Mental status continues to improve as per patient's sister BP elevated overnight--Started on lisinopril Denies any chest pain, SOB, dizziness, abdominal pain Urine Culture growing Strep species Review of Systems Review of Systems: All systems reviewed & are unremarkable except as noted in HPI & below Physical Exam Physical Exam: Physical Exam: Vitals signs as noted above General Appearance:Moderately built and nourished, no apparent distress Head: normocephalic, Atraumatic Eyes: normal inspection, EOMI Neck: supple, Trachea midline Respiratory/Chest: Normal breath sounds, CTA Cardiovascular: S1, S2, No murmur Abdomen/GI:Soft, Non tender, Bowel sounds present Extremities/Musculoskelatal:normal inspection, no edema Neurologic/Psych:grossly no focal neurological deficits Skin: normal color, warm Results & Data Vital Signs (Past 12 Hours) Vital Signs Temp Pulse Pulse Resp BP Pulse Ox 02/27/19 16:13 91 02/27/19 14:55 36.3 C L 77 18 122/72 92 02/27/19 11:30 36.7 C 73 20 143/75 H 92 02/27/19 08:00 54 L 02/27/19 07:00 36.5 C 70 21 152/83 H 94 (1) Altered mental status Altered mental status type: unspecified Qualified Code(s): R41.82 - Altered mental status, unspecified (2) UTI (urinary tract infection) Hematuria presence: without hematuria Urinary tract infection type: site unspecified Qualified Code(s): N39.0 - Urinary tract infection, site not specified
[2019-02-27] MEDS: cefTRIAXone SODIUM 1,000 MG in DEXTROSE 5% 50 ML IV SCH (19:08)
[2019-02-28] MEDS: BUDESONIDE/FORMOTEROL FUMARATE 160/4.5 60 PUFFS/INHALER INH SCH ×2 (05:39→18:40)
[2019-02-28] MEDS: CHOLECALCIFEROL 1,000 UNITS TAB PO SCH (08:15)
[2019-02-28] MEDS: LISINOPRIL 2.5 MG TAB PO SCH (08:15)
[2019-02-28] MEDS: MULTIVITAMIN TAB PO SCH (08:15)
[2019-02-28] MEDS: ATENOLOL 25 MG TABLET PO SCH (08:15)
[2019-02-28] MEDS: SACCHAROMYCES BOULARDII 250 MG CAP PO SCH ×2 (08:15→20:06)
[2019-02-28] MEDS: DIVALPROEX DELAY RELEASE 250 MG TABEC PO SCH ×3 (08:15→20:07)
[2019-02-28] MEDS: OLANZapine 10 MG TAB PO SCH ×2 (08:15→20:06)
[2019-02-28] MEDS: DONEPEZIL HCL 10 MG TAB PO SCH (08:15)
[2019-02-28] MEDS: SERTRALINE HCL 50 MG TABLET PO SCH (08:16)
[2019-02-28] MEDS: risperiDONE 0.5 MG TABLET PO SCH ×3 (08:16→20:07)
[2019-02-28] MEDS: ASPIRIN 81 MG ECTAB PO SCH (08:16)
[2019-02-28] MEDS: ENOXAPARIN INJ 40 MG/0.4 ML SYR SQ SCH (08:16)
--- NOTE | 2019-02-28 15:12 | Psychiatric Progress Note ---
Date of Service February 28, 2019 Impression / Recommendations Impression Patient's case was reviewed with psychiatric nurse liaison. We have been accumulating information from patient's sister as well as staff from the patient's intermediate. It was reported through case management at the intermediate had significant concerns about adjustments to the patient's psychiatric medication regimen, as they state that her agitated and aggressive behaviors witness there have been an significantly better control. At this time, patient's sister is reporting that she is appearing less sedated as she is receiving medical treatment for her UTI. Patient sister states that she does not feel that the patient's hypersomnolence is related to any recent psychiatric medication adjustments. This provider had a detailed conversation with the sister regarding the need for cautious adjustments to medications if desired, as even small adjustments to the patient's medication regimen may result in increased aggression towards hospital or intermediate staff. Being that agitated dementia is difficult to treat and patient is reported to be in optimal control, this provider is hesitant to make any significant adjustments to her medications at this time. This provider did review with the patient's sister possible medication adjustments to consider once the patient is transitioned back to the intermediate. It may be a consideration to slowly cut back on the risperidone as tolerated, possibly making a medication twice daily rather than 3 times daily. It seems best to make these adjustments once patient has returned to her familiar home setting, and staff is able to observe for any behavioral changes. There continues to be no criteria which would suggest the need for an inpatient psychiatric admission. Dr. Janes Luciano was directly involved in review and discussion of the patient's case and participated in medical decision making regarding treatment recommendations. Interval History Identifying Information 73-year-old female admitted medically on 02/25/2019 due to reports of confusion and hypersomnolence. Psychiatric consultation was requested to evaluate patient, and determine if psychiatric medications may be playing a role in the chief complaint. Information is gathered from hospital documentation. Patient is cooperative with interview; however, due to the severity of her dementia is unable to provide any reliable productive information. Information provided at follow-up visit is provided by patient's sister and EMELY Ott. Chief Complaint "Oh hi, thank you so much." Review of Systems Notes Pt unable to participate in full review of systems due to her condition Subjective Subjective Patient was seen & assessed and interval progress reviewed with psychiatric nurse liaison. Phone calls by psychiatric liaison to both patient's sister as well as communication with the intermediate show that patient has recently raised adequate behavioral management with current psychiatric medication regimen. This provider was on speakerphone with a conversation with Case management. Case management had mentioned that the intermediate was concerned about the idea of medication changes, as patient has a history of experiencing aggressive behaviors and agitation at the home. She has had 2 psychiatric hospitalizations which have been reported to be in the last year. It was reported that the addition of Benadryl to her medication regimen was a significant culprit of increasing his agitated behaviors. Patient has been through multiple medication changes since that time, and it was reported by case management at the intermediate feels that she is in optimal behavioral control. Nursing and provider notes from this hospitalization were reviewed. This provider has also met with the patient twice, who has been easily arousable to auditory stimuli and has been alert during her visits. Admittedly, patient is appearing fatigued today, however sister states that she did not sleep last evening. This provider's discussed the patient's history with her sister, Namrata, who is also the patient's POA. It appears that the patient's sister has a rather decent understanding of the patient's medication history and the reasoning for the various psychotropic agents. Sister's focus is on the potential to consolidate the patient's medication regimen and limit the number of agents involved. On report from patient's sister, the patient has been appearing less sedated over the course of her UTI treatment, and sister feels that patient's mentation is much closer to baseline. Patient sister does not feel that the patient's hypersomnolence was related to any recent psychiatric medication adjustments. Discussed with patient's sister the delicate balance of making medication adjustments in the patient's case, as even mild changes may result in significant alteration in behavior. This provider and the patient's sister had a discussion regarding patient's previous diagnoses, previous inpatient hospitalizations, and their "loss of latrell" in psychiatric treatment. Risks and benefits of medication adjustments were discussed, ensuring that sister understood that any adjustments to her current regimen may result in agitated or aggressive outbursts. It is a sister's understanding that the patient is to be discharged back to her intermediate when she is finished with her treatment for the UTI. Patient's sister was given opportunity to ask questions, and all concerns were addressed during this visit. Physical Exam Psychiatric Orientation: alert and oriented to person Apperance: appropriately dressed and appropriately groomed Eye Contact: + fair eye contact (Though nodding off at times) Motor Behavior: no abnormal motor movements (Seated in chair by bed) Speech: normal rate/rhythm/volume of speech (Minimal participation in encounter) Affect: + blunted affect (Though not clearly related to a psychiatric disorder) Difficult to assess due to severity of patient's condition Difficult to assess due to severity of patient's condition Insight: + severely impaired insight Judgement: + severely impaired judgement Vital Signs (Past 24 Hours) Last Vital Signs Temp 35.9 C L 02/28/19 11:30 Pulse 49 L 02/28/19 11:30 Resp 18 02/28/19 11:30 BP 146/71 H 02/28/19 11:30 Pulse Ox 92 02/28/19 11:30 Results & Data Laboratory Results Laboratory Results - last 24 hr 02/27/19 02/27/19 02/28/19 16:11 20:18 07:47 POC Glucose 113 H 208 H 125 H 02/28/19 11:52 POC Glucose 124 H Current Inpatient Medications Current Inpatient Medications: Current Inpatient Medications Acetaminophen (Tylenol) 650 mg PO Q4H PRN PRN Reason: Pain or Fever Stop: 03/27/19 17:59 Last Admin: 02/26/19 16:43 Dose: 650 mg Documented by: Al Hydrox/Mg Hydrox/Simethicone (Maalox) 15 ml PO Q4H PRN PRN Reason: Dyspepsia Stop: 03/27/19 17:59 Aspirin (Ecotrin Ectab) 81 mg PO DAILY COUNT INCLUDES THE [facility] Stop: 03/28/19 08:59 Last Admin: 02/28/19 08:16 Dose: 81 mg Documented by: Atenolol (Tenormin) 6.25 mg PO DAILY RIN Stop: 03/31/19 08:59 Budesonide/Formoterol Fumarate (Symbicort 160mcg/4.5mcg) 2 puffs INH Q12H RIN Stop: 03/27/19 17:59 Last Admin: 02/28/19 05:39 Dose: 2 puffs Documented by: Dextrose (Dextrose 50%) 25 - 50 ml IV UD PRN; Protocol PRN Reason: Hypoglycemia Protocol Stop: 03/27/19 17:59 Divalproex Sodium (Depakote Delay Release) 250 mg PO TID COUNT INCLUDES THE [facility] Stop: 03/27/19 20:59 Last Admin: 02/28/19 13:52 Dose: 250 mg Documented by: Donepezil HCl (Aricept) 10 mg PO DAILY COUNT INCLUDES THE [facility] Stop: 03/28/19 08:59 Last Admin: 02/28/19 08:15 Dose: 10 mg Documented by: Enoxaparin Sodium (Lovenox) 40 mg SQ Q24H COUNT INCLUDES THE [facility] Stop: 03/28/19 08:59 Last Admin: 02/28/19 08:16 Dose: 40 mg Documented by: Glucagon (Glucagen) 1 mg SQ UD PRN; Protocol PRN Reason: Hypoglycemia Protocol Stop: 03/27/19 17:59 Glucose (Glucose 40%) 15 - 30 gm PO UD PRN; Protocol PRN Reason: Hypoglycemia Protocol Stop: 03/27/19 17:59 Glucose (Dex4 Glucose) 4 - 8 tabs PO UD PRN; Protocol PRN Reason: Hypoglycemia Protocol Stop: 03/27/19 17:59 Ceftriaxone Sodium 1,000 mg/ (Dextrose) 50 mls @ 100 mls/hr IV Q24H COUNT INCLUDES THE [facility]; Protocol Stop: 03/02/19 18:59 Last Infusion: 02/27/19 19:45 Dose: Infused Documented by: Lisinopril (Zestril) 2.5 mg PO QAM COUNT INCLUDES THE [facility] Stop: 03/29/19 05:59 Last Admin: 02/28/19 08:15 Dose: 2.5 mg Documented by: Magnesium Hydroxide (Milk Of Magnesia) 30 ml PO Q12H PRN PRN Reason: Constipation Stop: 03/27/19 17:59 Miconazole Nitrate (Desenex) 1 appln EXT PRN PRN PRN Reason: Affected Skin Folds Stop: 03/28/19 19:18 Miscellaneous (Order Awaiting Action) 1 ea N/A QS COUNT INCLUDES THE [facility] Stop: 03/28/19 00:00 Last Admin: 02/28/19 08:01 Dose: Not Given Documented by: Miscellaneous (Carbohydrates For Hypoglycemia) 15 - 30 gm PO UD PRN PRN Reason: Hypoglycemia Treatment Stop: 03/27/19 17:59 Multivitamins (Multivitamin Tab) 1 tab PO QAM COUNT INCLUDES THE [facility] Stop: 03/28/19 08:59 Last Admin: 02/28/19 08:15 Dose: 1 tab Documented by: Olanzapine (Zyprexa) 10 mg PO BID COUNT INCLUDES THE [facility] Stop: 03/27/19 20:59 Last Admin: 02/28/19 08:15 Dose: 10 mg Documented by: Ondansetron HCl (Zofran) 4 mg IV Q6H PRN PRN Reason: Nausea Stop: 03/27/19 17:59 Polyethylene Glycol (Miralax Powder Packet) 17 gm PO DAILY PRN PRN Reason: Constipation Stop: 03/27/19 17:59 Risperidone (Risperdal) 0.5 mg PO TID COUNT INCLUDES THE [facility] Stop: 03/27/19 20:59 Last Admin: 02/28/19 13:52 Dose: 0.5 mg Documented by: Saccharomyces Boulardii (Florastor) 250 mg PO BID COUNT INCLUDES THE [facility] Stop: 03/27/19 20:59 Last Admin: 02/28/19 08:15 Dose: 250 mg Documented by: Sertraline HCl (Zoloft) 25 mg PO DAILY COUNT INCLUDES THE [facility] Stop: 03/28/19 08:59 Last Admin: 02/28/19 08:16 Dose: 25 mg Documented by: Vitamin D (Vitamin D3) 2,000 units PO DAILY COUNT INCLUDES THE [facility] Stop: 03/28/19 08:59 Last Admin: 02/28/19 08:15 Dose: 2,000 units Documented by: CPT Code CPT Code 37182 [id number]
--- NOTE | 2019-02-28 15:36 | Hospitalist Progress Note ---
Date of Service February 28, 2019 Assessment & Plan (1) Altered mental status: (2) Dementia: (3) UTI (urinary tract infection): Patient is a 73 yr female with H/O dementia, HTN, HLD, T2DM off medications, COPD, CELIO on BiPAP, schizophrenia, chronic right hydronephrosis with right renal atrophy due to right UPJ obstruction that is being managed with chronic right ureteral stent presents to [facility] ED secondary to increased confusion x1 day. H/O recurrent UTIs Metabolic Encephalopathy-POA: likely due to Infection, insetting of dementia and on chronic Psychotropic meds CT Head:No acute intracranial findings. Inflammatory changes within the left maxillary sinus Urine Culture: Strep Species Blood Culture:No growth to date Chest x-ray no acute cardiopulmonary abnormality Continue IV Rocephin Day # 4 Received IV Fluids Appreciate Psychiatry Input-- No plan for meds adjustment currently Mental status continues back to baseline as per Patient's sister Continue current medications (4) T wave inversion in EKG: Unknown baseline EKG Troponin X 3: negative Patient denies chest pain Repeat EKG: unchanged (5) Elevated lactic acid level: Uncertain significance Normalized with IV fluids (6) Hydronephrosis due to obstruction of ureter: H/O Chronic right hydronephrosis with 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 Stent last exchanged [place] Dr. Sharma [place] [facility] [place]. Exchanged on a yearly basis. KUB: shows good position of stent (7) Schizophrenia: Mood stable Unclear if hypersomnolence related to multiple psychiatric medications Continue current medications as mental status back to baseline with UTI treatment Psychiatry on board (8) HTN (hypertension): BP slightly elevated Decrease atenolol to 6.25mg due to bradycardia Increase lisinopril to 5mg for better BP control Monitor (9) COPD (chronic obstructive pulmonary disease): No acute exacerbation Continue Symbicort (10) T2DM (type 2 diabetes mellitus): Hb A1C:6.0 off diabetic meds Consider ISS if necessary (11) CELIO treated with BiPAP: continue Bipap at HS (12) DVT prophylaxis: Lovenox SQ Disposition: Return to [facility] once stable Subjective Patient is seen and examined at bedside History is limited secondary to dementia Sister at bedside No new complaints Mental status is back to baseline Appreciate Psychiatry Input Will increase lisinopril to 5 mg for better BP control Denies any chest pain, SOB, dizziness, abdominal pain Urine Culture sensitivities pending Review of Systems Review of Systems: All systems reviewed & are unremarkable except as noted in HPI & below Physical Exam Physical Exam: Physical Exam: Vitals signs as noted above General Appearance:Moderately built and nourished, no apparent distress Head: normocephalic, Atraumatic Eyes: normal inspection, EOMI Neck: supple, Trachea midline Respiratory/Chest: Normal breath sounds, CTA Cardiovascular: S1, S2, No murmur Abdomen/GI:Soft, Non tender, Bowel sounds present Extremities/Musculoskelatal:normal inspection, no edema Neurologic/Psych:grossly no focal neurological deficits Skin: normal color, warm Results & Data Vital Signs (Past 12 Hours) Vital Signs Temp Pulse Pulse Resp BP BP Pulse Ox 02/28/19 15:25 36.7 C 64 18 151/76 H 96 02/28/19 11:30 35.9 C L 49 L 18 146/71 H 92 02/28/19 08:00 60 02/28/19 07:21 36.4 C L 62 18 148/75 H 97 02/28/19 04:42 35.9 C L 20 153/82 H 97 (1) Altered mental status Altered mental status type: unspecified Qualified Code(s): R41.82 - Altered mental status, unspecified (2) UTI (urinary tract infection) Hematuria presence: without hematuria Urinary tract infection type: site unspecified Qualified Code(s): N39.0 - Urinary tract infection, site not specified
[2019-02-28] MEDS: cefTRIAXone SODIUM 1,000 MG in DEXTROSE 5% 50 ML IV SCH (18:40)
[2019-03-01] MEDS: BUDESONIDE/FORMOTEROL FUMARATE 160/4.5 60 PUFFS/INHALER INH SCH ×2 (06:26→18:59)
[2019-03-01 07:53] LABS: BUN Creatinine Ratio 15.7 (10-20); Creatinine Clr Calc Pharmacy 55.8 ml/min; Est GFR (African American) 83.6; Est GFR (Non-African American) 72.1; Potassium 4.1 mmol/L (3.5-5.1)
[2019-03-01] MEDS: OLANZapine 10 MG TAB PO SCH ×2 (08:42→21:53)
[2019-03-01] MEDS: MULTIVITAMIN TAB PO SCH (08:42)
[2019-03-01] MEDS: risperiDONE 0.5 MG TABLET PO SCH ×3 (08:42→21:51)
[2019-03-01] MEDS: CHOLECALCIFEROL 1,000 UNITS TAB PO SCH (08:42)
[2019-03-01] MEDS: DONEPEZIL HCL 10 MG TAB PO SCH (08:42)
[2019-03-01] MEDS: SACCHAROMYCES BOULARDII 250 MG CAP PO SCH ×2 (08:43→21:52)
[2019-03-01] MEDS: DIVALPROEX DELAY RELEASE 250 MG TABEC PO SCH ×3 (08:43→21:52)
[2019-03-01] MEDS: ENOXAPARIN INJ 40 MG/0.4 ML SYR SQ SCH (08:43)
[2019-03-01] MEDS: SERTRALINE HCL 50 MG TABLET PO SCH (08:43)
[2019-03-01] MEDS: ASPIRIN 81 MG ECTAB PO SCH (08:44)
[2019-03-01] MEDS: LISINOPRIL 5 MG TAB PO SCH (08:44)
[2019-03-01] MEDS ORDERED: ATENOLOL 25 MG TABLET PO SCH (09:00)
--- NOTE | 2019-03-01 14:00 | Hospitalist Progress Note ---
Date of Service March 01, 2019 Assessment & Plan (1) Altered mental status: (2) Dementia: (3) UTI (urinary tract infection): Patient is a 73 yr female with H/O dementia, HTN, HLD, T2DM off medications, COPD, CELIO on BiPAP, schizophrenia, chronic right hydronephrosis with right renal atrophy due to right UPJ obstruction that is being managed with chronic right ureteral stent presents to [facility] ED secondary to increased confusion x1 day. H/O recurrent UTIs Metabolic Encephalopathy-POA: likely due to Infection, insetting of dementia and on chronic Psychotropic meds CT Head:No acute intracranial findings. Inflammatory changes within the left maxillary sinus Urine Culture: Strep Species>>Enterococcus Fecalis Blood Culture:No growth to date Normal Lactate levels Chest x-ray no acute cardiopulmonary abnormality Continue IV Rocephin Day # 4>>>Amox Received IV Fluids Appreciate Psychiatry Input-- No plan for meds adjustment currently Psychiatric meds likely causing lethargy (4) T wave inversion in EKG: Unknown baseline EKG Troponin X 3: negative Patient denies chest pain Repeat EKG: unchanged (5) Elevated lactic acid level: Uncertain significance Normalized with IV fluids (6) Hydronephrosis due to obstruction of ureter: H/O Chronic right hydronephrosis with 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 Stent last exchanged by Dr. Sharma at [facility] [place] 01/24/2019. Exchanged on a yearly basis. KUB: shows good position of stent (7) Schizophrenia: Mood stable Unclear if hypersomnolence related to multiple psychiatric medications Continue current medications Psychiatry on board (8) HTN (hypertension): BP slightly elevated Decrease atenolol to 6.25mg due to bradycardia Continue Increased lisinopril to 5mg Monitor (9) COPD (chronic obstructive pulmonary disease): No acute exacerbation Continue Symbicort (10) T2DM (type 2 diabetes mellitus): Hb A1C:6.0 off diabetic meds Consider ISS if necessary (11) CELIO treated with BiPAP: continue Bipap at HS (12) DVT prophylaxis: Lovenox SQ Disposition: Return to [facility] once stable Subjective Patient is seen and examined at bedside History is limited secondary to dementia Sister at bedside Patient is lethargic today Doesn't answer to questions Urine culture grows Enterococcus faecalis Review of Systems Review of Systems: All systems reviewed & are unremarkable except as noted in HPI & below Physical Exam Physical Exam: Physical Exam: Vitals signs as noted above General Appearance:Moderately built and nourished, no apparent distress, Lethargic Head: normocephalic, Atraumatic Eyes: normal inspection, EOMI Neck: supple, Trachea midline Respiratory/Chest: Normal breath sounds, CTA Cardiovascular: S1, S2, No murmur Abdomen/GI:Soft, Non tender, Bowel sounds present Extremities/Musculoskelatal:normal inspection, no edema Neurologic/Psych:grossly no focal neurological deficits Skin: normal color, warm Results & Data Vital Signs (Past 12 Hours) Vital Signs Temp Pulse Pulse Resp BP BP Pulse Ox 03/01/19 11:00 36.7 C 58 L 18 156/72 H 97 03/01/19 07:44 36.5 C 60 20 168/77 H 96 03/01/19 07:11 57 L 03/01/19 04:39 54 L 14 98 03/01/19 04:10 36.3 C L 74 18 131/[address] [facility] 03/01/19 06:59 Sodium 143 Potassium 4.1 Chloride 111 H Carbon Dioxide 29 BUN 13 Creatinine 0.80 Glucose 107 H Calcium 9.0 (1) Altered mental status Altered mental status type: unspecified Qualified Code(s): R41.82 - Altered mental status, unspecified (2) UTI (urinary tract infection) Hematuria presence: without hematuria Urinary tract infection type: site unspecified Qualified Code(s): N39.0 - Urinary tract infection, site not specified
--- NOTE | 2019-03-01 14:46 | Ultrasound Report ---
US renal/blad retro comp HISTORY: UTI, stent COMPARISON: None. FINDINGS: Right kidney: Dimension 8.5 cm. Mild hydronephrosis. A stent is present. Moderate cortical scarring and thinning Left kidney: Maximum dimension 10.9 cm. No evidence hydronephrosis. Moderate cortical scarring and t hinning Bladder: No bladder wall thickening. The bilateral ureteral jets were identified. IMPRESSION: 1. Mild right hydronephrosis. 2. Cortical scarring and thinning of the kidneys bilaterally. The above report was generated using voice recognition software. It may contain grammatical, syntax or spelling errors. Electronically signed by: Papito Moses M.D. 03/01/2019 2:44 PM
[2019-03-01] MEDS: AMOXICILLIN 500 MG CAP PO SCH ×2 (14:50→21:51)
--- NOTE | 2019-03-02 01:53 | Hospitalist Progress Note ---
Date of Service March 02, 2019 Subjective Made aware by RN of transient bradycardia, cardiac rate 30s upon turning patient. AP Episodic bradycardia Hold beta-wally Rx for now. Will relay to AM provider. Results & Data Vital Signs (Past 12 Hours) Vital Signs Temp Pulse Pulse Resp BP Pulse Ox 03/02/19 01:07 64 14 95 03/01/19 23:50 36.6 C 61 20 140/63 97 03/01/19 23:25 70 03/01/19 21:49 72 14 96 03/01/19 20:10 36.3 C L 78 20 156/81 H 92 03/01/19 16:46 36.8 C 65 20 140/82 90 03/01/19 15:49 54 L
[2019-03-02 02:15] LABS: Basophils # (auto) 0.02 K/uL (0-0.2); Basophils % (auto) 0.4 %; Eosinophils # (auto) 0.14 K/uL (0-0.5); Eosinophils % (auto) 2.6 %; Hematocrit (blood only) 35.7 % (37-47); Hemoglobin 11.9 g/dL (12.0-16.0); Immature Granulocytes # (auto) 0.03 K/uL (0.00-0.02); Immature Granulocytes % (auto) 0.6 %; Lymphocytes # (auto) 1.42 K/uL (1.2-3.4); Lymphocytes % (auto) 26.5 %; Mean Corpuscular Hgb Conc 33.3 g/dL (32-36); Mean Corpuscular Volume 90.6 fL (80-100); Monocytes # (auto) 0.59 K/uL (0.11-0.59); Neutrophils # (auto) 3.15 K/uL (1.4-6.5); Neutrophils % (auto) 58.9 %; Platelet Count 177 K/uL (130-400); RDW Coefficient of Variation 14.3 % (11.5-14.5); RDW Standard Deviation 47.6 fL (36.4-46.3); Red Blood Count 3.94 M/uL (4.2-5.4); White Blood Count 5.35 K/uL (4.8-10.8)
[2019-03-02 02:33] LABS: BUN Creatinine Ratio 21.2 (10-20); Calcium 8.9 mg/dl (8.5-10.1); Creatinine Clr Calc Pharmacy 51.9 ml/min; Est GFR (African American) 76.6; Est GFR (Non-African American) 66.1; Magnesium 2.2 mg/dl (1.8-2.4); Potassium 4.4 mmol/L (3.5-5.1)
[2019-03-02] MEDS: BUDESONIDE/FORMOTEROL FUMARATE 160/4.5 60 PUFFS/INHALER INH SCH ×2 (06:17→18:35)
[2019-03-02 07:25] LABS: Creatinine Clr Calc Pharmacy 48.3 ml/min; Est GFR (African American) 67.9; Est GFR (Non-African American) 58.6
[2019-03-02] MEDS: AMOXICILLIN 500 MG CAP PO SCH ×3 (08:20→21:07)
[2019-03-02] MEDS: OLANZapine 10 MG TAB PO SCH ×2 (08:20→21:07)
[2019-03-02] MEDS: SERTRALINE HCL 50 MG TABLET PO SCH (08:20)
[2019-03-02] MEDS: LISINOPRIL 5 MG TAB PO SCH (08:20)
[2019-03-02] MEDS: risperiDONE 0.5 MG TABLET PO SCH ×3 (08:20→21:07)
[2019-03-02] MEDS: MULTIVITAMIN TAB PO SCH (08:21)
[2019-03-02] MEDS: DONEPEZIL HCL 10 MG TAB PO SCH (08:22)
[2019-03-02] MEDS: DIVALPROEX DELAY RELEASE 250 MG TABEC PO SCH ×3 (08:22→21:07)
[2019-03-02] MEDS: CHOLECALCIFEROL 1,000 UNITS TAB PO SCH (08:22)
[2019-03-02] MEDS: ASPIRIN 81 MG ECTAB PO SCH (08:22)
[2019-03-02] MEDS: ENOXAPARIN INJ 40 MG/0.4 ML SYR SQ SCH (08:23)
[2019-03-02] MEDS: SACCHAROMYCES BOULARDII 250 MG CAP PO SCH ×2 (08:25→21:07)
--- NOTE | 2019-03-02 12:32 | Hospitalist Progress Note ---
Date of Service March 02, 2019 Assessment & Plan (1) Altered mental status: (2) Dementia: (3) UTI (urinary tract infection): Patient is a 73 yr female with H/O dementia, HTN, HLD, T2DM off medications, COPD, CELIO on BiPAP, schizophrenia, chronic right hydronephrosis with right renal atrophy due to right UPJ obstruction that is being managed with chronic right ureteral stent presents to [facility] ED secondary to increased confusion x1 day. H/O recurrent UTIs Metabolic Encephalopathy-POA: likely due to Infection, insetting of dementia and on chronic Psychotropic meds CT Head:No acute intracranial findings. Inflammatory changes within the left maxillary sinus Urine Culture: Strep Species>>Enterococcus Fecalis Blood Culture:No growth to date Normal Lactate levels Chest x-ray no acute cardiopulmonary abnormality Continue IV Rocephin Day # 4>>>Amox Day #2 Received IV Fluids Appreciate Psychiatry Input-- No plan for meds adjustment currently Psychiatric meds likely causing lethargy intermittently Needs Follow up with Psychiatry upon discharge Sinus Bradycardia: Episodic Will discontinue Atenolol Advised to follow up with Cardiology as outpatient (4) T wave inversion in EKG: Unknown baseline EKG Troponin X 3: negative Patient denies chest pain Repeat EKG: unchanged (5) Elevated lactic acid level: Uncertain significance Normalized with IV fluids (6) Hydronephrosis due to obstruction of ureter: H/O Chronic right hydronephrosis with 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 Stent last exchanged by Dr. Sharma at [facility] [place] 01/24/2019. Exchanged on a yearly basis. KUB: shows good position of stent Renal USD: Mild right hydronephrosis. Cortical scarring and thinning of the kidneys bilaterally. (7) Schizophrenia: Mood stable Unclear if hypersomnolence related to multiple psychiatric medications Continue current medications Psychiatry on board Needs adjust of meds if patient continues to be lethargic (8) HTN (hypertension): BP much better Discontinued atenolol due to bradycardia Continue Increased lisinopril to 5mg Monitor (9) COPD (chronic obstructive pulmonary disease): No acute exacerbation Continue Symbicort (10) T2DM (type 2 diabetes mellitus): Hb A1C:6.0 off diabetic meds Consider ISS if necessary (11) CELIO treated with BiPAP: continue Bipap at HS (12) DVT prophylaxis: Lovenox SQ Disposition: Return to [facility] once stable Need to Continue Physical Therapy at [place] Subjective Patient is seen and examined at bedside History is limited secondary to dementia Sister at bedside Has been Bradycardic intermittently--asymptomatic Tele monitor--44 last night while asleep, Current HR :70s Patient is pleasant, sitting in chair having lunch Offers no complaints Plan to be discharged today Review of Systems Review of Systems: All systems reviewed & are unremarkable except as noted in HPI & below Physical Exam Physical Exam: Physical Exam: Vitals signs as noted above General Appearance:Moderately built and nourished, no apparent distress Head: normocephalic, Atraumatic Eyes: normal inspection, EOMI Neck: supple, Trachea midline Respiratory/Chest: Normal breath sounds, CTA Cardiovascular: S1, S2, No murmur Abdomen/GI:Soft, Non tender, Bowel sounds present Extremities/Musculoskelatal:normal inspection, no edema Neurologic/Psych:grossly no focal neurological deficits Skin: normal color, warm Results & Data Vital Signs (Past 12 Hours) Vital Signs Temp Pulse Pulse Resp BP BP Pulse Ox 03/02/19 08:12 36.6 C 57 L 20 126/77 97 03/02/19 07:04 51 L 03/02/19 05:32 48 L 14 96 03/02/19 04:43 36.5 C 102 H 20 100/72 100 03/02/19 01:07 64 14 95 Laboratory Results Short CBC 03/02/19 Range/Units 02:04 WBC 5.35 (4.8-10.8) K/uL Hgb 11.9 L (12.0-16.0) g/dL Hct 35.7 L (37-47) % Plt Count 177 (130-400) K/uL BMP 03/02/19 03/02/19 02:04 06:07 Sodium 143 Potassium 4.4 Chloride 110 H Carbon Dioxide 30 BUN 18 Creatinine 0.86 0.95 Glucose 103 H Calcium 8.9 Diagnostic Findings Renal USD: 1. Mild right hydronephrosis. 2. Cortical scarring and thinning of the kidneys bilaterally. (1) Altered mental status Altered mental status type: unspecified Qualified Code(s): R41.82 - Altered mental status, unspecified (2) UTI (urinary tract infection) Hematuria presence: without hematuria Urinary tract infection type: site unspecified Qualified Code(s): N39.0 - Urinary tract infection, site not specified
--- NOTE | 2019-03-02 12:42 | Discharge Summary ---
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 [place] [facility] [place] Exchanged on a yearly basis. KUB: shows good position of stent Renal USD: Mild right hydronephrosis. Cortical scarring and thinning of the kidneys bilaterally. (7) Schizophrenia: (8) HTN (hypertension): (9) COPD (chronic obstructive pulmonary disease): No acute exacerbation Continue Symbicort (10) T2DM (type 2 diabetes mellitus): (11) CELIO treated with BiPAP: (12) DVT prophylaxis: Discharge Plan Discharge Items Patient Disposition: Transfer Long-Term Fac Reason For Visit: ALTERED MENTAL STATUS Discharge Diagnosis: Metabolic Encephalopathy Urinary Tract Infection Sinus Bradycardia Schizophrenia Discharge Goals: Decrease discomfort, Improve disease control and Improve function Activity: Resume your previous activity Exercise/Sports: Gradually increase as tolerated Non-emergency contact: Primary Care Provider, [employer] and Psychiatrist Call non-emergency contact if: you have any medication questions, your symptoms worsen, your pain is not controlled, your pain is worsening, your pain is unusual for you, your pain is concerning for you and you have a fever Follow-up/Referrals: PCP,NO [Primary Care Provider] - Diet: Carb Consistent or DM2 and Heart Healthy Addtl Provider Instructions: Follow-up with your primary care physician in 1 week Follow-up with your psychiatrist Dr. 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 Sharma for recurrent urinary tract infections as advised Continue physical therapy at [place] Complete the antibiotic course as prescribed Your psychiatric medications may need to be adjusted as it could be contributing to drowsiness. Get sleep study as outpatient as per recommendations of her primary care physician. You are started on lisinopril 5 mg daily for blood pressure control. Your medications need to be adjusted if your blood pressure continues to be elevated. Seek immediate medical attention if your symptoms reoccur or worsen Prescriptions: New amoxicillin 500 mg Capsule 500 mg PO TID 8 Days Qty: 24 RF: 0 lisinopril [Zestril] 5 mg Tablet 5 mg PO QAM 30 Days Qty: 30 RF: 0 Continued donepezil 5 mg tablet 10 mg PO DAILY RF: 0 divalproex 250 mg tablet,delayed release (DR/EC) 250 mg PO TID RF: 0 aspirin 81 mg Tablet,Delayed Release (Dr/Ec) 81 mg PO DAILY RF: 0 acetaminophen 500 mg Tablet 500 mg PO Q6H PRN (Reason: Pain) RF: 0 albuterol sulfate 0.63 mg/3 mL Solution For Nebulization 0.63 mg INHALATION QID PRN (Reason: shortness of breath) RF: 0 Iron 100 Plus [id number]-mg Tablet 2 tab PO DAILY RF: 0 olanzapine 10 mg Tablet 10 mg PO BID RF: 0 multivitamin Capsule 1 cap PO QAM RF: 0 risperidone [Risperdal] 0.5 mg Tablet 0.5 mg PO TID RF: 0 Florastor 250 mg Capsule 250 mg PO BID RF: 0 cholecalciferol (vitamin D3) 2,000 unit Tablet 2,000 unit PO DAILY RF: 0 sertraline 50 mg Tablet 25 mg PO DAILY RF: 0 Symbicort 160-4.5 mcg/actuation Hfa Aerosol Inhaler 2 puff INHALATION Q12H RF: 0 Discontinued atenolol 25 mg tablet 12.5 mg PO DAILY RF: 0 Stand-Alone Forms: [facility] Skilled Items Patient informed of condition?: Yes DNR: No Discharge Level of Care: Skilled Communicable Disease: No Discharge Prognosis: Improving Admission Data Admit Date/Time: 02/27/19 19:59 Attending Provider: Blaine Merida Admit Provider: Janet Paez Primary Care Provider: PCP,NO Other Providers: Aminah Dunlpa ; Janet Paez ; Angel Daniel ; Jing Brooks ; Gemini Mueller ; Johnson Pressley ; Dxa Shukla ; Jhoana Russo ; Janes Luciano ; Marychuy Correa ; Windy Contreras ; Donal Sullivan ; Liyah Roy ; Kaykay Blanca ; Navin Ng I ; Precious Daugherty ; Veronique Adler. ; Ayleen Caputo. ; Mingo De La Rosa. ; Janes Avila Service: Telemetry Medical Other Interventions: Discharge Summary Assessment (RN) Last Done: 03/02/19 12:53 Pending Studies at Discharge: No
[2019-03-02] MEDS ORDERED: LISINOPRIL 5 MG TAB PO ONE (20:10)
[2019-03-03] MEDS: BUDESONIDE/FORMOTEROL FUMARATE 160/4.5 60 PUFFS/INHALER INH SCH (06:14)
[2019-03-03] MEDS: SERTRALINE HCL 50 MG TABLET PO SCH (08:09)
[2019-03-03] MEDS: DONEPEZIL HCL 10 MG TAB PO SCH (08:09)
[2019-03-03] MEDS: ASPIRIN 81 MG ECTAB PO SCH (08:09)
[2019-03-03] MEDS: CHOLECALCIFEROL 1,000 UNITS TAB PO SCH (08:09)
[2019-03-03] MEDS: MULTIVITAMIN TAB PO SCH (08:09)
[2019-03-03] MEDS: DIVALPROEX DELAY RELEASE 250 MG TABEC PO SCH ×2 (08:10→14:06)
[2019-03-03] MEDS: OLANZapine 10 MG TAB PO SCH (08:10)
[2019-03-03] MEDS: risperiDONE 0.5 MG TABLET PO SCH ×2 (08:11→14:06)
[2019-03-03] MEDS: AMOXICILLIN 500 MG CAP PO SCH ×2 (08:11→14:06)
[2019-03-03] MEDS: SACCHAROMYCES BOULARDII 250 MG CAP PO SCH (08:11)
[2019-03-03] MEDS: ENOXAPARIN INJ 40 MG/0.4 ML SYR SQ SCH (08:12)
[2019-03-03] MEDS ORDERED: LISINOPRIL 10 MG TAB PO SCH (09:00)
--- NOTE | 2019-03-03 09:51 | Cardiology Consultation ---
Date of Consultation March 03, 2019 Assessment & Plan (1) Chronic ischemic heart disease: Bedside echocardiogram demonstrating posterior lateral wall motion abnormality with mildly reduced LV systolic function. No signs/symptoms of decompensated heart failure. Recommend evidence-based medical therapy including low-dose beta-wally, RANDALL inhibitor, aspirin, and statin therapy. Patient may begin low-dose Toprol-XL 12.5 mg daily. She follows with the [facility] cardiology clinic in [place]. Medical management versus further ischemic evaluation pending outpatient. Abnormal ECG noted. Prior ECG demonstrating nonspecific T wave abnormality. No prior echocardiogram for comparison. (2) Sinus bradycardia: Occurring during periods of sleep as well as at rest. No associated symptoms. Cautiously add low-dose beta-wally therapy. (3) PVC (premature ventricular contraction): Suspect related to obstructive sleep apnea. No sustained dysrhythmias. Recommend low-dose beta-wally as noted above. (4) HTN (hypertension): Fair control. (5) Dementia: History of Present Illness Reason for Consultation: Bradycardia, PVCs Requesting Physician: Dr. Merida Attending Physician: Blaine Merida MD History of Present Illness 73-year-old female with underlying dementia admitted with change in mental status. Patient unarousable by sleep medicine prior to admission. Noted to have elevated lactate level. Diagnosed with urinary tract infection. Patient unable to offer meaningful history. Oriented to person only. Sister is present at bedside. Cardiology consultation requested due to evidence of bradycardia on telemetry. Telemetry reviewed demonstrating periods of sinus bradycardia with heart rates as low as 40 to 45 bpm. Bradycardia typically occurs during presumed hours of rest. Sinus tachycardia and PACs noted during waking hours as well as with activity. Rare PVCs noted. There are 2 4 beat, PVC runs over the past 6 days. No associated symptoms. Runs occurred during presumed hours of sleep. Atenolol discontinued during hospitalization due to sinus bradycardia. Resting 2D transthoracic echocardiogram performed this morning demonstrates a posterior lateral wall motion abnormality with mildly reduced LV function. Sister at bedside voices concern regarding hypertension. Lisinopril recently added by internal medicine during hospitalization. Allergies Allergy/AdvReac Type Severity Reaction Status Date / Time sulfamethoxazole AdvReac Mild Photosensit Verified 02/28/19 08:10 [From Bactrim] ivity trimethoprim [From Bactrim] AdvReac Mild Photosensit Verified 02/28/19 08:10 ivity Home Medications Home Medications Medication Instructions Recorded Confirmed Type Florastor 250 mg PO BID 02/25/19 02/25/19 History Iron 100 Plus 2 tab PO DAILY 02/25/19 02/25/19 History Symbicort 2 puff INHALATION Q12H 02/25/19 02/25/19 History acetaminophen 500 mg PO Q6H PRN 02/25/19 02/25/19 History albuterol sulfate 0.63 mg INHALATION QID PRN 02/25/19 02/25/19 History aspirin 81 mg PO DAILY 02/25/19 02/25/19 History cholecalciferol (vitamin D3) 2,000 unit PO DAILY 02/25/19 02/25/19 History divalproex 250 mg PO TID 02/25/19 02/25/19 History donepezil 10 mg PO DAILY 02/25/19 02/25/19 History multivitamin 1 cap PO QAM 02/25/19 02/25/19 History olanzapine 10 mg PO BID 02/25/19 02/25/19 History risperidone [Risperdal] 0.5 mg PO TID 02/25/19 02/25/19 History sertraline 25 mg PO DAILY 02/25/19 02/25/19 History amoxicillin 500 mg PO TID 8 Days #24 cap 03/02/19 Rx lisinopril [Zestril] 5 mg PO QAM 30 Days #30 tab 03/02/19 Rx Patient History Medical History History of hysterectomy (Chronic) Hydronephrosis due to obstruction of ureter (Chronic) HTN (hypertension) (Chronic) T2DM (type 2 diabetes mellitus) (Chronic) COPD (chronic obstructive pulmonary disease) (Chronic) HLD (hyperlipidemia) (Chronic) PERDITO (generalized anxiety disorder) (Chronic) Schizophrenia (Chronic) Dementia (Chronic) CELIO treated with BiPAP (Chronic) Kidney infection Surgical History H/O cystoscopy (Chronic) S/P cystoscopy with ureteral stent placement (Chronic) History of chronic right hydronephrosis 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 [place] [facility] [place] Exchanged on a yearly basis. Hx of nephrostomy (Chronic) S/P ureteral stent placement (Acute) Family History Mother Alzheimer disease Pneumonia Father Coronary heart disease, Onset Age: 55 [place] Social History Preferred Language: [place] Communication Ability: confused Communication Ability Comment: Dementia Bicycle Courier Required: No Beliefs That Will Affect Care: None marital status: / Current Living Situation: Shelter Other Information That Helps Us Care for You: No Feels Safe at Home: Yes Smoking Status: Former smoker Smoking End Date: 2005 Hx Alcohol Use: No Hx Substance Use: No Review of Systems Review of Systems: All systems reviewed & are unremarkable except as noted in HPI & below Physical Exam Physical Exam: General: NAD, oriented to person only, well nourished. Pleasant. HEENT: Normocephalic. Atraumatic. Conjunctiva pink, no scleral icterus. Neck: No carotid bruits, the carotid upstrokes are brisk. No JVD. No HJR Heart: Regular normal S-1 and S-2 no S-3 or S-4 gallop. No murmurs or rub appreciated. PMI is not displaced. No RV heave. Lungs: Clear bilateral without rales , rhonchi, or wheeze. Abdomen: Normal bowel sounds. Soft. Nontender. No masses or organomegaly. No abdominal bruits. Extremities: No clubbing, cyanosis, or edema. Pulses: radial=2/4, posterior tibial=2/4. Neuro: Cranial nerves grossly intact. Moves all extremities. Unable to follow commands. Results & Data Vital Signs (Past 12 Hours) Vital Signs Temp Pulse Pulse Resp BP Pulse Ox 03/03/19 07:29 36.8 C 53 L 19 149/67 H 97 03/03/19 07:24 49 L 03/03/19 05:32 65 16 96 03/03/19 04:49 36.5 C 66 18 139/71 94 03/03/19 01:52 81 16 97 03/02/19 23:57 36.6 C 59 L 18 138/87 98 03/02/19 23:38 81 03/02/19 22:26 60 20 99 Laboratory Results Laboratory Results - last 24 hr 03/02/19 03/02/19 03/02/19 11:43 17:03 20:17 POC Glucose 119 H 104 H 194 H 03/03/19 07:38 POC Glucose 110 H (1) HTN (hypertension) Hypertension type: essential hypertension Qualified Code(s): I10 - Essential (primary) hypertension
[2019-03-03] MEDS ORDERED: METOPROLOL SUCC 25MG EXT REL TAB PO SCH (10:00)
--- NOTE | 2019-03-03 13:02 | Hospitalist Progress Note ---
Date of Service March 03, 2019 Assessment & Plan (1) Altered mental status: (2) Dementia: (3) UTI (urinary tract infection): Patient is a 73 yr female with H/O dementia, HTN, HLD, T2DM off medications, COPD, CELIO on BiPAP, schizophrenia, chronic right hydronephrosis with right renal atrophy due to right UPJ obstruction that is being managed with chronic right ureteral stent presents to [facility] ED secondary to increased confusion x1 day. H/O recurrent UTIs Metabolic Encephalopathy-POA: likely due to Infection, insetting of dementia and on chronic Psychotropic meds CT Head:No acute intracranial findings. Inflammatory changes within the left maxillary sinus Urine Culture: Strep Species>>Enterococcus Fecalis Blood Culture:No growth to date Normal Lactate levels Chest x-ray no acute cardiopulmonary abnormality Continue IV Rocephin Day # 4>>>Amox Day #3 Received IV Fluids Appreciate Psychiatry Input-- No plan for meds adjustment currently Psychiatric meds likely causing lethargy intermittently Needs Follow up with Psychiatry upon discharge More alert, awake, mental status seemed to be back to baseline Chronic Ischemic Heart disease: Sinus Bradycardia: Tele: some PVCs, transient bradycardia during sleep PVCs likely due to sleep apnea ECHO:demonstrates posterior lateral wall motion abnormality with mildly reduced LV systolic function No prior ECHO for comparison Troponin X 3: Negative Start on metoprolol 12.5 mg daily and lipitor 40mg daily Continue Aspirin , lisinopril Appreciate Cardiology Input Needs follow up with as outpatient (4) T wave inversion in EKG: Unknown baseline EKG Troponin X 3: negative Patient denies chest pain Repeat EKG: unchanged (5) Elevated lactic acid level: Uncertain significance Normalized with IV fluids (6) Hydronephrosis due to obstruction of ureter: H/O Chronic right hydronephrosis with 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 Stent last exchanged [place] Dr. Sharma [place] [facility] [place]. Exchanged on a yearly basis. KUB: shows good position of stent Renal USD: Mild right hydronephrosis. Cortical scarring and thinning of the kidneys bilaterally. (7) Schizophrenia: Mood stable Unclear if hypersomnolence related to multiple psychiatric medications Continue current medications Psychiatry on board Needs adjust of meds if patient continues to be lethargic (8) HTN (hypertension): BP slightly elevated Continue Increased lisinopril to 10 mg Also started on metoprolol XL 12.5 mg daily Monitor (9) COPD (chronic obstructive pulmonary disease): No acute exacerbation Continue Symbicort (10) T2DM (type 2 diabetes mellitus): Hb A1C:6.0 off diabetic meds Consider ISS if necessary (11) CELIO treated with BiPAP: continue Bipap at (12) DVT prophylaxis: Lovenox SQ Disposition: Return to [facility] once stable Need to Continue Physical Therapy at [place] Subjective Patient is seen and examined at bedside History is limited secondary to dementia Sister at bedside Denies chest pain, SOB, dizziness Discussed with Cardiology today Will start her on metoprolol and Lipitor as per Cards Patient is pleasant, sitting in chair, no distress Review of Systems Review of Systems: Unobtainable due to cognitive status Physical Exam Physical Exam: Physical Exam: Vitals signs as noted above General Appearance:Moderately built and nourished, no apparent distress Head: normocephalic, Atraumatic Eyes: normal inspection, EOMI Neck: supple, Trachea midline Respiratory/Chest: Normal breath sounds, CTA Cardiovascular: S1, S2, No murmur Abdomen/GI:Soft, Non tender, Bowel sounds present Extremities/Musculoskelatal:normal inspection, no edema Neurologic/Psych:grossly no focal neurological deficits Skin: normal color, warm Results & Data Vital Signs (Past 12 Hours) Vital Signs Temp Pulse Pulse Resp BP Pulse Ox 03/03/19 12:19 36.5 C 81 16 146/84 H 94 03/03/19 07:29 36.8 C 53 L 19 149/67 H 97 03/03/19 07:24 49 L 03/03/19 05:32 65 16 96 03/03/19 04:49 36.5 C 66 18 139/71 94 03/03/19 01:52 81 16 97 (1) Altered mental status Altered mental status type: unspecified Qualified Code(s): R41.82 - Altered mental status, unspecified (2) UTI (urinary tract infection) Hematuria presence: without hematuria Urinary tract infection type: site unspecified Qualified Code(s): N39.0 - Urinary tract infection, site not specified
--- NOTE | 2019-03-03 13:21 | Discharge Summary ---
Date of Service March 03, 2019 Admission HPI Per Admitting Provider Chief Complaint: Increased confusion x 1 day. Primary Care Provider: Dr. 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 Patient was seen at [facility] sleep medicine clinic today with sister at bedside. Provider was unable to arouse patient due to hypersomnolence. Reason for visit was hypersomnolence. There was concern about altered mental status and it was recommended she seek for further evaluation. Sister continues to be at bedside. Unable to obtain history or ROS from patient given dementia. Patient resides at [facility]. Sister notes temp 99F sleep medicine clinic. She does feel she is more confused than usual. She is unable to describe patient's baseline mental status. History obtained from outpatient provider records. Admission Exam Per Admitting Provider Gen: Elderly, female, appears older than stated age, lying in bed, pleasantly confused Head: Normocephalic, Atraumatic Eyes: Sclera normal, no conjunctival injection, PERRLA, EOMI ENT: Gross hearing intact, normal pharynx, mucous membranes moist Neck: supple, no adenopathy, No JVD, no bruit, Resp: Clear to auscultation b/l, no wheeze, rales, rhonchi. Normal insp/exp effort, no accessory muscle use CV: Regular rate, regular rhythm, no murmur, rub, gallop, or ectopy Abd: +BS x 4, soft, nontender, nondistended Musculoskeletal: moves extremities active rom x 4, strength 4/5 throughout, fair marketing analyst strength Extremities: No edema bilaterally Skin: warm, dry, no rash, mild turgor, cap refill < 2sec Neuro: Alert and oriented x 1 to self only, speech normal but occasionally garbled, good mood/affect, cran nerve 2-12 intact grossly : deferred Principal Diagnosis Discharge Information Discharge Diagnosis Metabolic Encephalopathy Urinary Tract Infection Sinus Bradycardia Schizophrenia Discharge Goals Decrease discomfort,Improve function,Improve disease control Discharge Activity Limitations Resume your previous activity Discharge Data Allergies Allergy/AdvReac Type Severity Reaction Status Date / Time sulfamethoxazole AdvReac Mild Photosensit Verified 02/28/19 08:10 [From Bactrim] ivity trimethoprim [From Bactrim] AdvReac Mild Photosensit Verified 02/28/19 08:10 ivity Consultations 02/25/19 14:34 ED Decision to Admit Stat 02/25/19 14:43 ED Decision to Admit Stat 02/25/19 18:00 Consult Case Management - Discharge Planning Routine Consult Psychiatry Routine 03/03/19 08:00 Consult Cardiology Routine Procedures Performed CT head: 1. No acute intracranial findings 2. Inflammatory changes within the left maxillary sinus KUB: The right ureteral stent appears in good position. No definite renal or ureteral calculi identified. CXR: Slight nonspecific interstitial prominence. Otherwise negative chest. Renal USD: 1. Mild right hydronephrosis. 2. Cortical scarring and thinning of the kidneys bilaterally. ECHO: There is no compared to study available The left ventricle systolic function is mildly reduced Ejection fraction is 45 to 50% There is mild concentric left ventricle hypertrophy The mid and apical lateral wall is hypokinetic There is mid to apical posterior wall is severely hypokinetic to akinetic No significant valvular pathology. 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 H/O recurrent UTIs Metabolic Encephalopathy-POA: likely due to Infection, insetting of dementia and on chronic Psychotropic meds CT Head:No acute intracranial findings. Inflammatory changes within the left maxillary sinus Urine Culture: Strep Species>>Enterococcus Fecalis Blood Culture:No growth to date Normal Lactate levels Chest x-ray no acute cardiopulmonary abnormality Continue IV Rocephin Day # 4>>>Amox Day #3 Received IV Fluids Appreciate Psychiatry Input-- No plan for meds adjustment currently Psychiatric meds likely causing lethargy intermittently Needs Follow up with Psychiatry upon discharge More alert, awake, mental status seemed to be back to baseline Chronic Ischemic Heart disease: Sinus Bradycardia: Tele: some PVCs, transient bradycardia during sleep PVCs likely due to sleep apnea ECHO:demonstrates posterior lateral wall motion abnormality with mildly reduced LV systolic function No prior ECHO for comparison Troponin X 3: Negative Start on metoprolol 12.5 mg daily and lipitor 40mg daily Continue Aspirin , lisinopril Appreciate Cardiology Input Needs follow up with as outpatient (4) T wave inversion in EKG: Unknown baseline EKG Troponin X 3: negative Patient denies chest pain Repeat EKG: unchanged (5) Elevated lactic acid level: Uncertain significance Normalized with IV fluids (6) Hydronephrosis due to obstruction of ureter: H/O Chronic right hydronephrosis with 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 Stent last exchanged by Dr. Sharma at [facility] 01/24/2019. Exchanged on a yearly basis. KUB: shows good position of stent Renal USD: Mild right hydronephrosis. Cortical scarring and thinning of the kidneys bilaterally. (7) Schizophrenia: Mood stable Unclear if hypersomnolence related to multiple psychiatric medications Continue current medications Psychiatry on board Needs adjust of meds if patient continues to be lethargic (8) HTN (hypertension): BP slightly elevated Continue Increased lisinopril to 10 mg Also started on metoprolol XL 12.5 mg daily Monitor (9) COPD (chronic obstructive pulmonary disease): No acute exacerbation Continue Symbicort (10) T2DM (type 2 diabetes mellitus): Hb A1C:6.0 off diabetic meds Consider ISS if necessary (11) CELIO treated with BiPAP: continue Bipap at (12) DVT prophylaxis: Lovenox SQ Disposition: Return to [facility] once stable Need to Continue Physical Therapy at [place] Total Time Total Time Spent Total Time Spent (In Minutes): 47 minutes Total Time Includes: Examination of the Patient, Discharge Planning, Medication Reconciliation, Communication With Other Providers and Other Discharge Plan Discharge Items Patient Disposition: Transfer [facility] Reason For Visit: ALTERED MENTAL STATUS Discharge Diagnosis: Metabolic Encephalopathy Urinary Tract Infection Sinus Bradycardia Schizophrenia Discharge Goals: Decrease discomfort, Improve disease control and Improve function Activity: Resume your previous activity Exercise/Sports: Gradually increase as tolerated Non-emergency contact: Primary Care Provider, Forest Fire Warden and Psychiatrist Call non-emergency contact if: you have any medication questions, your symptoms worsen, your pain is not controlled, your pain is worsening, your pain is unusual for you, your pain is concerning for you and you have a fever Follow-up/Referrals: PCP,NO [Primary Care Provider] - Diet: Carb Consistent or DM2 and Heart Healthy Addtl Provider Instructions: Follow-up with your primary care physician in 1 week Follow-up with your psychiatrist Dr. Pressley in 2 weeks Follow-up with your steel layer in 2 to 4 weeks as advised Consider follow-up with your urologist Dr. Sharma for recurrent urinary tract infections as advised Continue physical therapy at [place] Complete the antibiotic course as prescribed Your psychiatric medications may need to be adjusted as it could be contributing to drowsiness. Get sleep study as outpatient as per recommendations of her primary care physician. You are started on lisinopril 10 mg daily and Metoprolol XL 12.5 mg daily Seek immediate medical attention if your symptoms reoccur or worsen Prescriptions: New amoxicillin 500 mg Capsule 500 mg PO TID 8 Days Qty: 24 RF: 0 atorvastatin 40 mg Tablet 40 mg PO QAM 30 Days Qty: 30 RF: 0 lisinopril 10 mg Tablet 10 mg PO QAM 30 Days Qty: 30 RF: 0 metoprolol succinate 25 mg Tablet Extended Release 24 Hr 12.5 mg PO QAM 30 Days Qty: 15 RF: 1 Continued donepezil 5 mg tablet 10 mg PO DAILY RF: 0 divalproex 250 mg tablet,delayed release (DR/EC) 250 mg PO TID RF: 0 aspirin 81 mg Tablet,Delayed Release (Dr/Ec) 81 mg PO DAILY RF: 0 acetaminophen 500 mg Tablet 500 mg PO Q6H PRN (Reason: Pain) RF: 0 albuterol sulfate 0.63 mg/3 mL Solution For Nebulization 0.63 mg INHALATION QID PRN (Reason: shortness of breath) RF: 0 Iron 100 Plus [id number] Tablet 2 tab PO DAILY RF: 0 olanzapine 10 mg Tablet 10 mg PO BID RF: 0 multivitamin Capsule 1 cap PO QAM RF: 0 risperidone [Risperdal] 0.5 mg Tablet 0.5 mg PO TID RF: 0 Florastor 250 mg Capsule 250 mg PO BID RF: 0 cholecalciferol (vitamin D3) 2,000 unit Tablet 2,000 unit PO DAILY RF: 0 sertraline 50 mg Tablet 25 mg PO DAILY RF: 0 Symbicort 160-4.5 mcg/actuation Hfa Aerosol Inhaler 2 puff INHALATION Q12H RF: 0 Discontinued atenolol 25 mg tablet 12.5 mg PO DAILY RF: 0 Stand-Alone Forms: [facility] Discharge Orders: Discharge Order (Routine); Ordered 03/03/19 Ordered By: Blaine Merida Skilled Items Patient informed of condition?: Yes DNR: No Discharge Level of Care: Skilled Communicable Disease: No Discharge Prognosis: Improving Admission Data Admit Date/Time: 02/27/19 19:59 Attending Provider: Blaine Merida Admit Provider: Janet Paez Primary Care Provider: PCP,NO Other Providers: Aminah Dunlap ; Janet Paez ; Angel Daniel ; Jing Brooks ; Gemini Mueller ; Johnson Pressley ; Dax Shukla ; Jhoana Russo ; Janes Luciano ; Marychuy Correa ; Windy Contreras ; Donal Sullivan ; Liyah Roy ; Kaykay Blanca ; Navin Ng I ; Precious Daugherty ; Veronique Adler. ; Ayleen Caputo ; Mingo De La Rosa ; Janes Avila Service: Telemetry Medical Other Interventions: Discharge Summary Assessment (RN) Last Done: 03/03/19 15:13 Pending Studies at Discharge: No DC Date/Time DO NOT enter until pt leaves facility: 03/03/19 15:49
[2019-03-04] MEDS ORDERED: ATORVASTATIN 40 MG TAB PO SCH (09:00)
== END 2019-03-03 15:49 | DRG 689 ==
LOC: 2N 12:26 → ED 12:26 → SUATTDRO 15:26 → 2N 16:41
DX: E78.5 Hyperlipidemia, unspecified; N13.6 Pyonephrosis; J44.9 Chronic obstructive pulmonary disease, unspecified; R00.1 Bradycardia, unspecified; G47.33 Obstructive sleep apnea (adult) (pediatric); F20.9 Schizophrenia, unspecified; Z79.899 Other long term (current) drug therapy; I10 Essential (primary) hypertension; G93.41 Metabolic encephalopathy; F03.90 Unspecified dementia, unspecified severity, without behavioral disturbance, psychotic disturbance, mood disturbance, and anxiety; E11.9 Type 2 diabetes mellitus without complications